=== PATIENT | male | born 1945 | race Caucasian/White ===

== ENCOUNTER 2022-08-14 21:11 | Inpatient (IN) | payer MEDICARE, SELFPAY ==
[2022-08-14] VITALS (8 sets, daily range): BP systolic 121–180; BP diastolic 62–100; PULSE 88–108; RESP 22–27; TEMP 36.8; O2SAT 85–100; BMI 25.8
--- NOTE | 2022-08-14 21:19 | ECG_ITS ---
[facility] Test Date: 2022-08-14 Pat Name: Candido Garcia Department: Room: Gender: Male Policy Checker: : 1945 Requested By: Pauline Simon Order Number: [id number] Manpreet MD: Linh Mallory M.D. Measurements Intervals [place] Rate: 94 P: 29 GA: 147 QRS: 50 QRSD: 130 T: 42 QT: 379 QTc: 475 Interpretive Statements SINUS RHYTHM POSSIBLE LEFT ATRIAL ENLARGEMENT [-0.1mV P-WAVE IN V1/V2] POSSIBLE INFERIOR MYOCARDIAL INFARCTION , PROBABLY OLD [30 ms Q WAVE IN II/aVF] MARKED ST DEPRESSION, CONSIDER SUBENDOCARDIAL INJURY [0.2+ mV ST DEPRESSION] Compared to ECG 09/07/2015 04:34:39 Myocardial infarct finding now present Sinus tachycardia no longer present ST (T wave) deviation still present Electronically Signed On 08-15-2022 7:51:32 RECORD TABULATING CLERK by Linh Mallory M.D. [id number]
--- NOTE | 2022-08-14 21:19 | XRR_ITS ---
PROCEDURE INFORMATION: Exam: XR Chest Exam date and time: 08/14/2022 9:28 PM Age: 76 years old Clinical indication: Shortness of breath; Additional info: SOB TECHNIQUE: Imaging protocol: Radiologic exam of the chest. Views: 1 view. COMPARISON: CR XR chest 1V [id number] 09/07/2015 3:29 AM FINDINGS: Lungs: Cardiomegaly, mild pulmonary vascular congestion and patchy bilateral ground-glass airspace opacities, greatest in the right lower lobe reflecting alveolar edema and/or pneumonic infiltrates. Pleural spaces: Unremarkable. No pleural effusion. No pneumothorax. Heart/Mediastinum: See Lungs finding. Bones/joints: Unremarkable. XR/XR chest 1V portable [id number] IMPRESSION: Cardiomegaly, mild pulmonary vascular congestion and patchy bilateral ground-glass airspace opacities, greatest in the right lower lobe reflecting alveolar edema and/or pneumonic infiltrates.
[2022-08-14 21:36] LABS: ABG PCO2 38.5 mmHg (35-45); ABG PH Result 7.29 (7.35-7.45); Arterial Blood Gas Hematocrit 36.1 % (42-52); Base Excess ABG -7.4 mmol/L (-2.0-2.0); Blood Gas Sample Type Arterial; HCO3 ABG 18.6 mmol/L (22-26); PO2 ABG 64.3 mmHg (80.0-100.0)
[2022-08-14 21:37] LABS: Blood Gas Sample Site Brachial, right; Oxygen Device NC
--- NOTE | 2022-08-14 21:40 | ED_ITS ---
HPI - SOB/Dyspnea General: Chief Complaint: Shortness of Breath/Dyspnea Stated Complaint: CP Time Seen by Provider: 08/14/22 21:16 Source: patient and EMS Mode of arrival: EMS Limitations: no limitations History of Present Illness: HPI Narrative: 76-year-old male states he was driving home and had sudden onset of chest pain shortness of breath at 7:30 PM called EMS EMS states that he was in severe distress he is on 15 L currently with audible rales he is given nitro in route he states his chest pain is improved and is currently resolved EKG by EMS does show ST depressions no ST elevation in 2 contiguous leads to qualify for STEMI he is currently pain-free denies any cough or fever no history of heart disease. Associated symptoms: Reports chest pain; Deny abdominal pain, fever(s), nausea or vomiting Review of Systems Const: Denies: fever(s), chills, body aches or change in appetite Eyes: Denies: blurry vision or eye discomfort ENMT: Denies: throat pain or dental pain Card: Reports: chest pain Resp: Reports: dyspnea GI: Denies: abdominal pain, nausea, vomiting or diarrhea : Denies: dysuria Musc: Denies: neck pain or back pain Skin/Breast: Denies: rash Neuro: Denies: headache(s) Psych: Denies: depression Dandy/Lymph: Denies: easy bruising All/Imm: Denies: urticaria PFSH ED PFSH: Social History (Updated 06/23/22 @ 14:43 by Abril Shah LPN) Smoking and tobacco status: former smoker Quit status (tobacco): has quit using tobacco Year quit tobacco: 57 YEARS AGO Alcohol intake: current Alcohol intake frequency: holidays/special occasions only Physical Exam Const: COMMON NORMALS: patient oriented x3 GENERAL APPEARANCE: in distress and ill appearing HENMT: COMMON NORMALS: normocephalic and atraumatic HEAD & SCALP: normocephalic and atraumatic Eye: COMMON NORMALS: Equal, round and reactive pupils present and EOMs intact bilaterally PUPIL: Yes Equal, round and reactive pupils present Neck/C-Spine: COMMON NORMALS: full ROM and supple Chest: COMMONS NORMALS: normal inspection of the chest and normal palpation of entire chest wall Resp: EFFORT & INSPECTION: Yes respiratory distress and Yes labored AUS CULTATION: rales Cardio: COMMON NORMALS: regular rate, regular rhythm and No murmurs present (Cardio) RATE: regular rate RHYTHM: regular rhythm GI: COMMON NORMALS: Normal to inspection, nondistended, normoactive bowel sounds present, Soft to palpation, non-tender and no masses PALPATION: Yes Soft to palpation Extremity: COMMON NORMALS: normal to inspection and full ROM Neuro: COMMON NORMALS: patient oriented x3, moves all extremities and no focal motor deficits Psych: COMMON NORMALS: mental status grossly normal, Normal thought process present and cooperative THOUGHT PROCESS: Normal thought process present Skin: COMMON NORMALS: no rashes or lesions noted and no wounds GENERAL SKIN EXAM: no rashes or lesions noted Course Reevaluation(s): Reevaluation #1: Spoke to Dr. Tinsley of interventional cardiology who reviewed patient's EKG with EMS and EKG here he does have diffuse ST depressions but no ST elevation and qualifies for STEMI will not activate Veneer Clipper Helper at this time. Time: 21:43 Vital Signs: Vital signs: Vital Signs Temperature 98.2 F 08/14/22 21:14 Pulse Rate 88 08/14/22 21:53 Respiratory Rate 25 H 08/14/22 21:53 Blood Pressure 121/62 08/14/22 21:53 Pulse Oximetry 92 08/14/22 21:53 Oxygen Delivery Me thod 08/14/22 21:53 Oxygen Flow Rate 6 08/14/22 21:53 MDM - SOB/Dyspnea Medical Decision Making Patient presents here initially with dyspnea along with hypertension his blood pressures improved greatly with nitro with EMS as breathing here is improved as well he does have pulmonary edema likely from hypertensive emergency does have an elevated troponin consistent with NSTEMI EKG shows no findings of acute STEMI he is under a very difficult stressor today with his having a stroke and then a large hemorrhagic bleed could be a Tocco Subu's as well we will Lovenox patient patient's breathing is improved we will start on Mamie I spoke to the hospitalist normal jewel gauger and will admit Lab Data 08/14/22 21:30 08/14/22 21:30 Labs/Radiology: Radiology Impressions Chest X-Ray 08/14/22 21:19 IMPRESSION: Cardiomegaly, mild pulmonary vascular congestion and patchy bilateral ground-glass airspace opacities, greatest in the right lower lobe reflecting alveolar edema and/or pneumonic infiltrates. Laboratory Results WBC 16.3 10^3/uL (4.0-10.0) H 08/14/22 21: RBC 4.67 10^6/uL (4.1-5.3) 08/14/22 21: Hgb 11.4 g/dL (11.7-16.6) L 08/14/22 21: Hct 38.6 % (42.0-52.0) L 08/14/22: MCV 82.7 fl (80-94) 08/14/22 21: MCH 24.4 pg (28.0-34.0) L 08/14/22: MCHC 29.5 g/dL (30.0-36.0) L 08/14/22: RDW 14.8 % (12.1-15.1) 08/14/22: Plt Count 342 10^3/cmm (130-400) 08/14/22: MPV 10.4 fL (7.4-10.4) 08/14/22 21: Neut % (Auto) 90.2 % 08/14/22 21: Lymph % (Auto) 4.4 % 08/14/22 21: Ballard % (Auto) 4.2 % 08/14/22: Eos % (Auto) 0.1 % 08/14/22: Baso % (Auto) 0.2 % 08/14/22: Neut # (Auto) 14.70 10^3/uL (1.8-7.7) H 08/14/22: Lymph # (Auto) 0.7 10^3/uL (0.8-4.8) L 08/14/22: Ballard # (Auto) 0.7 10^3/uL (0.2-0.9) 08/14/22: Eos # (Auto) 0.0 10^3/uL (0.0-0.8) 08/14/22 21: Baso # (Auto) 0.0 10^3/uL (0.0-0.1) 08/14/22: Nucleated RBC % (auto) 0 % 08/14/22:30 Nucleated RBCs # 0.0 /100WBC 08/14/22 21:30 PT 15.70 SECONDS (12.1-14.9) H 08/14/22 21:30 INR 1.21 (0.8-1.2) H 08/14/22 21:30 Specimen Type Arterial 08/14/22 21:24 Sample Site Brachial, right 08/14/22 21:24 ABG pH 7.29 (7.35-7.45) L 08/14/22 21: ABG pCO2 38.5 mmHg (35-45) 08/14/22 21: ABG pO2 64.3 mmHg (80.0-100.0) L 08/14/22 21: ABG HCO3 18.6 mmol/L (22-26) L 08/14/22: ABG Base Excess -7.4 mmol/L (-2.0-2.0) L 08/14/22 21:24 Eddie Test N/a 08/14/22 21:24 Hematocrit 36.1 % (42-52) L 08/14/22 21:24 O2 Delivery Device Nc 08/14/22 21:24 O2 Liters/Min 6.0 % 08/14/22 21: FiO2 45.0 % 08/14/22 21:24 Biomedical Manager ID Zoe 08/14/22 21:24 Sodium 135 mmol/L (136-145) L 08/14/22 21:30 Potassium 3.7 mmol/L (3.5-5.1) 08/14/22 21: Chloride 98 mmol/L (98-107) 08/14/22 21:30 Carbon Dioxide 20 mmol/L (22-29) L 08/14/22 21:30 Anion Gap 20.7 (5-19) H 08/14/22 21:30 BUN 20 mg/dL (8-23) 08/14/22 21:30 Creatinine 1.4 mg/dL (0.7-1.2) H 08/14/22 21:30 GFR Calculation Not Reportable 08/14/22 21:30 Glucose 228 mg/dL (65-115) H 08/14/22 21:30 Calculated Osmolality 290 mOsm/kg (285-295) 08/14/22 21:30 Calcium 8.5 mg/dL (8.5-10.5) 08/14/22 21:30 Total Bilirubin 0.7 mg/dL (0.15-1.2) 08/14/22 21:30 AST 38 U/L (0-40) 08/14/22 21:30 ALT 18 U/L (0-41) 08/14/22 21:30 Alkaline Phosphatase 73 U/L (40-130) 08/14/22 21:30 Troponin T Baseline 293 ng/L (0-15) H* 08/14/22 21:30 NT-Pro-B Natriuret Pep 4140 pg/mL (0-450) H 08/14/22 21:30 Total Protein 7.0 g/dL (6.6-8.7) 08/14/22 21: Albumin 4.1 g/dL (3.5-5.2) 08/14/22 21:30 Globulin 2.9 g/dL (1.3-4.6) 08/14/22 21: Lipase 43 U/L (13-60) 08/14/22 21:30 Critical Care Time Critical Care Time: Critical Care Time: Yes Total Critical Care Time: 40 Attestation: The high probability of a clinically significant, sudden or life threatening deterioration of the patient's cv system(s) required my full and direct attention, intervention and personal management. The critical care time is as shown. This time is in addition to time spent performing any reported procedures but includes the following: [x] Data and vital sign review and interpretation [x] Patient assessment, examination and intervention [x] Documentation [x] Medication orders and management Discharge Plan Discharge Patient Disposition: Admitted As Inpatient Clinical Impression: Non-ST elevation NE (NSTEMI), Pulmonary edema Condition: Stable Coding Level of Care Code ED Field Research Associate for Nick Alegre
[2022-08-14 21:55] LABS: INR 1.21 (0.8-1.2)
[2022-08-14 21:58] LABS: Basophils % 0.2 %; Eosinophils % 0.1 %; Hematocrit 38.6 % (42.0-52.0); Hemoglobin 11.4 g/dL (11.7-16.6); Lymphocytes # 0.7 10^3/uL (0.8-4.8); Lymphocytes % 4.4 %; Mean Corpuscular HGB Conc 29.5 g/dL (30.0-36.0); Mean Corpuscular Hemoglobin 24.4 pg (28.0-34.0); Mean Corpuscular Volume 82.7 fl (80-94); Mean Platelet Volume 10.4 fL (7.4-10.4); Monocytes # 0.7 10^3/uL (0.2-0.9); Monocytes % 4.2 %; Neutrophils % 90.2 %; Nucleated Red Blood Cells % 0 %; Platelet Count 342 10^3/cmm (130-400); Red Blood Count 4.67 10^6/uL (4.1-5.3); Red Cell Distribution Width 14.8 % (12.1-15.1); White Blood Count 16.3 10^3/uL (4.0-10.0)
[2022-08-14 22:03] LABS: Alanine Aminotransferase 18 U/L (0-41); Albumin Level 4.1 g/dL (3.5-5.2); Alkaline Phosphatase 73 U/L (40-130); Anion Gap 20.7 (5-19); Aspartate Amino Transferase 38 U/L (0-40); Blood Urea Nitrogen 20 mg/dL (8-23); Calcium 8.5 mg/dL (8.5-10.5); Carbon Dioxide 20 mmol/L (22-29); Chloride 98 mmol/L (98-107); Globulin 2.9 g/dL (1.3-4.6); Glucose 228 mg/dL (65-115); Osmolality Calculated 290 mOsm/kg (285-295); Potassium 3.7 mmol/L (3.5-5.1); Sodium 135 mmol/L (136-145); Total Bilirubin 0.7 mg/dL (0.15-1.2); Troponin(5th) Baseline 293 ng/L (0-15)
[2022-08-14 22:10] LABS: NT Pro B Type Natriuretic Pept 4140 pg/mL (0-450)
[2022-08-14 22:12] LABS: Lipase 43 U/L (13-60)
[2022-08-14] MEDS: azithromycin 500 MG in sodium chloride 0.9% 250 ML 250 MG IV (22:30)
--- NOTE | 2022-08-14 22:30 | ECG_ITS ---
[facility] Test Date: 2022-08-14 Pat Name: Candido Garcia Department: Room: Gender: Male Superintendent House: : 1945 Requested By: Pauline Simon Order Number: [id number] Manpreet MD: Terrell Tinsley M.D. Measurements Intervals [place] Rate: 84 P: 32 FL: 154 QRS: 60 QRSD: 121 T: -79 QT: 401 QTc: 476 Interpretive Statements SINUS RHYTHM PROBABLE INFERIOR MYOCARDIAL INFARCTION , OF INDETERMINATE AGE [35 ms Q WAVE IN II/aVF] ST DEVIATION AND MODERATE T-WAVE ABNORMALITY, CONSIDER LATERAL ISCHEMIA [-0.1+ mV T-WAVE IN I/aVL/V5/V6] Compared to ECG 08/14/2022 21:24:26 T-wave abnormality now present Possible ischemia now present ST (T wave) deviation no longer present Myocardial infarct finding still present Electronically Signed On 08-15-2022 16:21:04 PRIMARY SCHOOL PRINCIPAL by Terrell Tinsley M.D. [id number]
[2022-08-14] MEDS: enoxaparin 80 mg/0.8 mL Syringe 70 MG SUBCUT (22:31)
[2022-08-14] MEDS: cefTRIAXone 1,000 MG in sodium chloride 0.9% (plus) 50 ML 100 MG IV (22:31)
[2022-08-14] MEDS: FUROsemide 10 mg/mL SDV 4mL 40 MG IVP (22:52)
[2022-08-14 23:52] LABS: Troponin 5 2HR 677.3 ng/L (0-15); Troponin 5 2HR Delta 384.3 ABS# (0-10)
[2022-08-15] VITALS (52 sets, daily range): BP systolic 120–181; BP diastolic 69–112; PULSE 68–109; RESP 16–31; TEMP 36.1–36.8; O2SAT 93–100
--- NOTE | 2022-08-15 00:16 | USCV_ITS ---
Candido Garcia Age: 76 Gender: M : 1945 Exam Date: 08/15/2022 01:05 Ordering Phys: Olga Eugene MD Technologist: BRENDA [place] [facility] [place] chest pain relieved with nitroglycerin, NSTEMI, No history of cardiac intervention per patient. BP: 142 / 82 HR: 82 Rhythm: Sinus Technical Quality: Adequate MEASUREMENTS (Male / Female) Normal Values 2D ECHO LV Diastolic Diameter PLAX 4.3 cm 4.2 - 5.9 / 3.9 - 5.3 cm LV Systolic Diameter PLAX 3.7 cm IVS Diastolic Thickness 2.0 cm 0.6 - 1.0 / 0.6 - 0.9 cm IVS Systolic Thickness 2.6 cm LVPW Diastolic Thickness 1.2 cm 0.6 - 1.0 / 0.6 - 0.9 cm LVPW Systolic Thickness 1.4 cm LVOT Diameter 1.9 cm LV Ejection Fraction 2D Teich 28.5 % LV Ejection Fraction MOD 2C 43.3 % LV Ejection Fraction 2C AL 44.4 % LA Diameter 4.6 cm LA Width 4.6 cm LA Height 6.2 cm RA Width 3.3 cm RA Height 4.7 cm Aorta at Sinotubular Diameter 2.5 cm IVC Diameter 1.9 cm M-MODE Aortic Annulus Diameter 2.5 cm LA Ao Ratio MM 1.9 MV E Point Septal Separation 2.0 cm DOPPLER AV Peak Velocity 141.0 cm/s LVOT Peak Velocity 87.0 cm/s AV Area Cont Eq vti 1.9 cm squared AV Area Cont Eq pk 1.7 cm squared MV Area PHT 4.4 cm squared Mitral E to A Ratio 0.9 MV E' Velocity 52.0 cm/s Mitral E to MV E' Ratio 21.5 Mitral E to LV E' Lateral Ratio 21.5 Mitral E to LV E' Septal Ratio 21.5 TR Peak Velocity 342.0 cm/s TR Peak Gradient 46.8 mmHg TV Peak E Velocity 46.0 cm/s Right Atrial Pressure 10.0 mmHg Pulmonary Artery Systolic Pressu 56.8 mmHg PV Peak Velocity 92.0 cm/s RV Acceleration Time 0.1 s RV Ejection Time 0.3 s RV AcT/ET 0.3 FINDINGS Left Ventricle Left ventricle is normal in size. LV systolic function is moderately reduced with EF of 35 to 40%. Mild global hypokinesis with severe hypokinesis of inferolateral wall. Grade 1 diastolic dysfunction. Right Ventricle Normal in size and function Right Atrium Normal in size Left Atrium Normal in size Mitral Valve Moderate mitral annular calcification is seen. Mild mitral regurgitation. Aortic Valve Aortic valve is thickened and calcified. No significant aortic stenosis. Trace aortic regurgitation. Tricuspid Valve Mild tricuspid regurgitation. RVSP is 55 to 60 mmHg. This is consistent with moderate pulmonary hypertension. Pulmonic Valve Not well-visualized Pericardium Normal Aorta Normal in size IVC Appears to be normal CONCLUSIONS LV systolic function is moderately reduced with EF of 35 to 40%. Above-mentioned regional wall motion abnormalities seen Grade 1 diastolic dysfunction Moderate mitral annular calcification is seen. Mild mitral regurgitation Trace aortic regurgitation Mild tricuspid regurgitation Moderate pulmonary hypertension No comparison studies are available Vivek Emmanuel MD (Electronically Signed) Final Date: 15 August 2022 08:19 S
--- NOTE | 2022-08-15 00:23 | PM.HP ---
Providers/Chief Complaint Admitting Physician: Olga Eugene MD Chief Complaint: CP History of Present Illness Candido Garcia is a 76 year old male with a past medical history of hypertension presenting to the hospital with chest pain. Chest pain started as patient was driving to [facility] while his was also being transported there for an acute hemorrhagic stroke. He has been extremely stressed related to his 's illness. He was also acutely short of breath and required 15 L/min supplemental oxygen. He received nitro in route via EMS which relieved his symptoms significantly. Initial EKG was concerning for STEMI, was discussed by ER physician with cardiology. No ST elevation in 2 contiguous leads, more likely to be NSTEMI. Troponin series significantly elevated with increasing delta at 2 hours. Denies any past history of CAD. Review of Systems General: Reports: 10 or more systems reviewed and unremarkable except in HPI and below Const: Denies: fever(s), chills or body aches Eyes: Denies: change in vision, blurry vision or photophobia ENMT: Reports: hoarseness; Denies: throat pain, enlarged tonsils, odynophagia or nasal congestion Card: Denies: chest pain, palpitations, irregular heart rhythm, edema, swelling of feet/ankles, lightheadedness, pre-syncope, dyspnea on exertion or orthopnea Resp: Denies: dyspnea, productive cough, non-productive cough, wheezing, stridor, pain on inspiration, change in phlegm color, hemoptysis or chest congestion GI: Denies: abdominal pain, nausea, vomiting, hematemesis, coffee ground emesis, dysphagia, heartburn, diarrhea, constipation, GI cramping, change in stool character, hematochezia or melena : Denies: flank pain, dysuria, urinary frequency, urinary urgency, urinary hesitancy or hematuria Musc: Denies: neck pain, back pain, extremity pain, joint swelling, joint warmth or deformity Neuro: Denies: headache(s), numbness in extremities, weakness in extremities, sensory changes, difficulty walking, frequent falls, dizziness, vertigo, behavioral changes, Slurred speech present or seizure-like activity Psych: Denies: anxiety, depression, suicidal ideation or homicidal ideation Endo: Denies: polyuria, polydipsia, tired all the time, cold intolerance or hot flashes Dandy/Lymph: Denies: easy bruising or easy bleeding Medications/Allergies Home Medications Medication Instructions Recorded Confirmed Last Taken Type cholecalciferol (vitamin D3) 125 125 mcg PO DAILY 06/23/22 06/23/22 Unknown History mcg (5,000 unit) capsule clonidine HCl 0.2 mg tablet 0.2 mg PO BID #60 tabs 06/23/22 06/23/22 Unknown Rx multivitamin 1 tab PO DAILY 06/23/22 06/23/22 Unknown History omega-3 fatty acids [Fish Oil] PO DAILY 06/23/22 06/23/22 Unknown History bisacodyl 10 mg rectal suppository 10 mg IN DAILY PRN constipation 07/02/22 Unknown Rx (Dulcolax (bisacodyl)) #12 ea hydrocortisone 1 %-pramoxine 1 % 1 applic IN TID PRN hemorrhoids 07/02/22 Unknown Rx rectal foam (Proctofoam HC) #10 grams Allergies Allergy/AdvReac Type Severity Reaction Status Date / Time lisinopril Allergy Severe ALGY-Anaphy Verified 08/14/22 21:21 laxis PFSH Acute PFSH: Social History Smoking and tobacco status: former smoker Quit status (tobacco): has quit using tobacco Year quit tobacco: 57 YEARS AGO Alcohol intake: current Alcohol intake frequency: holidays/special occasions only Vitals/I&O/Wt Last Vital Signs Temp 98.2 F 08/14/22 21:14 Pulse 86 08/15/22 00:00 Resp 25 H 08/14/22 21:53 BP 142/82 08/15/22 00:00 Pulse Ox 95 08/15/22 00:00 O2 Del Method 08/14/22 23:45 O2 Flow Rate 6 08/14/22 21:53 Weight last 48 hrs Weight 74.843 kg Physical Exam Narrative: General: No acute distress, AO x3 HEENT: PERRLA, pupils bilaterally equal and reactive, pallors not present Chest: Normal vesicular breath sounds, no added sounds, equal good air entry bilaterally CVS: S1-S2 regular, no murmurs, no tachycardia, no gallops, no rubs Abdomen: Soft, nontender, no organomegaly, bowel sounds present Neuro: No focal deficits, no facial deformity, AO x3, power 5/5 in all limbs Data 08/14/22 21:30 08/14/22 21:30 Micro: Microbiology 08/14/22 21:47 Blood Culture - Preliminary Blood SPECIMEN COLLECTED 08/14/22 21:45 Blood Culture - Preliminary Blood SPECIMEN COLLECTED A&P Assessment and plan (1) Non-ST elevation CO (NSTEMI): Presenting with chest pain EKg showed ST depression leads I,II, AVF Trop baseline 293, trending up to 677, delta > 300 at 2 hrs Cardiology consulted from ER ASA 81mg po daily, received 325 mg via EMS earlier , atorvastatin 40mg daily Lovenox 1mg/kg s/c q12h NPO for possible cath Clinically evidence of CHF , pending echocardiogram unknown if systolic or diastolic or acute or chronic at this time (2) Hypertension: Blood pressure is currently controlled. Plan Patient is quite anxious and worried about his . Also worried about his pets at home, currently without any heat. He wants to leave the hospital PRINCE. Counseled extensively that he has a life-threatening condition by way of NSTEMI right now. It is quite possible that he will suffer significant morbidity and may even if left untreated. States that he understands the risk, willing to wait until assessed by cardiology, however at this time stating that he will likely leave AMA without a cardiac cath. Attestations Medical Necessity Statement*: Greater than 2 midnights anticipated admission for above defined care Coding Level of Care Code Acute Code for Chg Fwd Moderate MDM includes number and complexity of problems actively addressed during encounter, amount and/or complexity of data reviewed/ordered and described risk of complication, morbidity or mortality of management as documented Diagnoses Non-ST elevation CO (NSTEMI) I21.4 Hypertension I10
[2022-08-15 00:47] LABS: Estmated Average Glucose 108; Hemoglobin A1C 5.4 % (4.0-6.0)
--- NOTE | 2022-08-15 03:19 | ECG_ITS ---
[facility] Test Date: 2022-08-15 Pat Name: Candido Garcia Department: Room: 111 Gender: Male Medical Videographer: : 1945 Requested By: Pauline Simon Order Number: [id number] Manpreet MD: Terrell Tinsley M.D. Measurements Intervals [place] Rate: 83 P: 10 AL: 149 QRS: 37 QRSD: 122 T: -14 QT: 403 QTc: 474 Interpretive Statements SINUS RHYTHM MODERATE INTRAVENTRICULAR CONDUCTION DELAY [110+ ms QRS DURATION] NONSPECIFIC ST & T-WAVE ABNORMALITY Compared to ECG 08/14/2022 22:30:14 Intraventricular conduction delay now present Myocardial infarct finding no longer present Possible ischemia no longer present T-wave abnormality still present Electronically Signed On 08-15-2022 16:21:59 EARTH MOVING MACHINE OPERATOR by Terrell Tinsley M.D. [id number]
[2022-08-15] MEDS: acetaminophen 325 mg Tablet 650 MG PO (03:41)
[2022-08-15 04:23] LABS: Chol HDL Ratio 4.36 mg/dL (1.0-5.00); Cholesterol 205 mg/dL (0-200); HDL Cholesterol 47 mg/dL (60-100); LDL Cholesterol Calculated 147 mg/dL (50-129); LDL HDL Ratio 3.13 RATIO (0.00-3.22); Triglycerides 55 mg/dL (0-150); Troponin 5 6HR 1847 ng/L (0-15); Troponin 5 6HR Delta 1554 ng/L (0-12)
[2022-08-15] MEDS: atorvastatin 40 mg Tablet PO (05:09)
[2022-08-15] MEDS: morphine 4 mg/mL SDV 1 mL 2 MG IVP (05:09)
[2022-08-15 05:46] LABS: Adenovirus Not Detected (NOT DETECT); Chlamydia Pneumoniae Not Detected (NOT DETECT); Coronavirus 229E,HKU1,NL63,OC4 Not Detected (NOT DETECT); Human Metapneumovirus Not Detected (NOT DETECT); Human Rhinovirus/Enterovirus Not Detected (NOT DETECT); Influenza A Not Detected (NOT DETECT); Influenza A H1 Not Detected (NOT DETECT); Influenza A H1-2009 Not Detected (NOT DETECT); Influenza A H3 Not Detected (NOT DETECT); Influenza B Not Detected (NOT DETECT); Mycoplasma Pneumoniae Not Detected (NOT DETECT); Parainfluenza Virus Type 1 Not Detected (NOT DETECT); Parainfluenza Virus Type 2 Not Detected (NOT DETECT); Parainfluenza Virus Type 3 Not Detected (NOT DETECT); Parainfluenza Virus Type 4 Not Detected (NOT DETECT); Respiratory Syncytial Virus A Not Detected (NOT DETECT); Respiratory Syncytial Virus B Not Detected (NOT DETECT); SARS-COV-2 Not Detected (NOT DETECT)
[2022-08-15 06:06] LABS: Alanine Aminotransferase 30 U/L (0-41); Alkaline Phosphatase 68 U/L (40-130); Anion Gap 19.9 (5-19); Aspartate Amino Transferase 153 U/L (0-40); Blood Urea Nitrogen 21 mg/dL (8-23); Calcium 8.6 mg/dL (8.5-10.5); Carbon Dioxide 22 mmol/L (22-29); Chloride 101 mmol/L (98-107); Globulin 2.2 g/dL (1.3-4.6); Glucose 100 mg/dL (65-115); Osmolality Calculated 291 mOsm/kg (285-295); Potassium 3.9 mmol/L (3.5-5.1); Sodium 139 mmol/L (136-145); Total Bilirubin 0.6 mg/dL (0.15-1.2); Total Protein 6.2 g/dL (6.6-8.7)
--- NOTE | 2022-08-15 08:11 | P.CONIM_ITS ---
Providers/Reason For Consult Consulting Physician/Specialty*: Cardiovascular medicine Reason for Consult*: Chest pain, shortness of breath, congestive heart failure, elevated troponin Requesting Physician: Hospitalist Attending Physician: Toño Holder MD History of Present Illness History of Present Illness Candido Garcia is a 76 year old male with known who was here with his last evening. She presented to the hospital with a stroke. She received tissue plasminogen activator and subsequently had an intracranial bleed. She was transferred to [place]. He was planning to go there. He left this hospital and was going home. He stopped at a [employer] in [place] To Get [employer]. As he was walking into the store he had the sudden onset of severe shortness of breath and chest pain. He actually went into the store and completed his purchase. He was driving home and was very short of breath when his son called him. His son noticed that he was in distress and called 911 for his father. He was brought here by ambulance in fairly severe respiratory distress requiring high levels of oxygen and a BiPAP in the emergency room. His initial EKG revealed sinus rhythm with diffuse ST segment depression in multiple leads. There was minimal ST elevation in lead III only. He was given Lovenox, aspirin, IV Lasix in the emergency room. Very shortly thereafter his chest pain completely resolved and his shortness of breath has resolved. It is clear from his clinical presentation and his chest x-ray that he had flash pulmonary edema. His first troponin was 293, the second 677 and the third 1847. He was hypertensive. This morning he told the nurses that he was leaving AGAINST MEDICAL ADVICE and was going to go to [place] to see his . He initially told them that he did not want to see a credit collection specialist here. Apparently he has had second thoughts after speaking to his son and a family friend who is with him today. Currently he is completely free of pain and states I feel fine and I am back to normal . His EKGs became much less ominous over time. The third was at about 230 this morning shows his STs almost back to baseline. Currently he is being treated with aspirin, Lipitor, Lovenox, IV Lasix, morphine as needed. Review of Systems Narrative: Review of systems is negative. Medications/Allergies Home Medications Medication Instructions Recorded Confirmed Last Taken Type cholecalciferol (vitamin D3) 125 125 mcg PO DAILY 06/23/22 06/23/22 Unknown History mcg (5,000 unit) capsule Mag Calm Powder 2 tsp PO DAILY 08/15/22 08/15/22 Unknown History Standard Process Multivitamin 4 tab PO TID 08/15/22 08/15/22 Unknown History aloe vera See Rx Instructions .Route .COMPLEX 08/15/22 08/15/22 Unknown History bisacodyl 5 mg tablet,delayed 10 mg PO DAILY PRN Constipation 08/15/22 08/15/22 Unknown History release (Dulcolax (bisacodyl)) clonidine HCl 0.2 mg tablet 0.2 mg PO DAILY PRN Blood Pressure 08/15/22 08/15/22 Unknown History omega-3 1,050 ei-dog-edh-dpa-fish 1 cap PO QAM 08/15/22 08/15/22 Unknown History oil 1,200 mg capsule (Jaroso-3 (with docosapentaenoic acid)) Allergies Allergy/AdvReac Type Severity Reaction Status Date / Time lisinopril Allergy Severe ALGY-Anaphy Verified 08/15/22 07:53 laxis nifedipine 0.2% topical Allergy pt states Uncoded 08/15/22 08:03 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 Current Medications Generic Name Dose Route Start Last Admin Trade Name Freq PRN Reason Stop Dose Admin Acetaminophen 650 mg 08/15/22 00:16 08/15/22 03:41 Acetaminophen 325 Mg Tablet PO 650 mg Q6H PRN Administration Mild/Mod Pain Or Temp >/= 101 Atorvastatin Calcium 40 mg 08/15/22 04:10 08/15/22 05:09 Atorvastatin 40 Mg Tablet PO 40 mg BEDTIME FRANCHESKA Administration Morphine Sulfate 2 mg 08/15/22 00:16 08/15/22 05:09 Morphine 4 Mg/Ml Sdv 1 Ml IVP 2 mg Q4H PRN Administration SEVERE PAIN PFSH Acute PFSH: Social History Smoking and tobacco status: former smoker Quit status (tobacco): has quit using tobacco Year quit tobacco: 57 YEARS AGO Alcohol intake: current Alcohol intake frequency: holidays/special occasions only Vitals/I&O/Wt Last Vital Signs Temp 97 F L 08/15/22 03:33 Pulse 83 08/15/22 06:00 Resp 22 H 08/15/22 05:09 BP 157/89 08/15/22 03:33 Pulse Ox 94 08/15/22 03:33 O2 Del Method 08/15/22 03:33 O2 Flow Rate 1 08/15/22 03:33 08/14/22 08/15/22 08/15/22 22:59 06:59 14:59 Intake Total 300 / 300 Output Total 835 / 835 Balance -535 / -535 Weight last 48 hrs Weight 161 lb Weight 165 lb Physical Exam Narrative: GENERAL: In general he is comfortable at rest and is in no distress currently HEENT: Exam within normal limits. NECK: Supple without jugular vein distention. The carotid upstroke is normal without bruits. BACK: Exam normal. LUNGS: Clear. HEART: Regular rate and rhythm. ABDOMEN: Benign without organomegaly or tenderness. EXTREMITIES: No edema. NEUROLOGIC: Exam normal. SKIN: Unremarkable. Data 08/14/22 21:30 08/15/22 03:18 Micro: Microbiology 08/14/22 21:47 Blood Culture - Preliminary Blood SPECIMEN COLLECTED 08/14/22 21:45 Blood Culture - Preliminary Blood SPECIMEN COLLECTED A&P Assessment and plan (1) Hypertension: (2) Non-ST elevation FL (NSTEMI): (3) Pulmonary edema: Plan He needs coronary angiography. For now, he has decided to stay. It is sc heduled for 1:00 this afternoon. If he leaves the hospital earlier than recommended he is at high risk for . Consult Attestations Medical Necessity Statement: Needs continued hospitalization for management of a non-ST segment elevation FL, flash pulmonary edema and heart failure. Coding Level of Care Code 00740 Moderate MDM includes number and complexity of problems actively addressed during encounter, amount and/or complexity of data reviewed/ordered and described risk of complication, morbidity or mortality of management as docu mented and Low Time for a total of Total time in patient care (in minutes): 35 minutes, includes reviewing past or interval history, examining/interviewing patient, placing orders, counseling patient/family/other support, discussing plan of care with staff and communicating with other healthcare providers Diagnoses Hypertension I10 Non-ST elevation FL (NSTEMI) I21.4 Pulmonary edema J81.1
[2022-08-15] MEDS: pantoprazole DR 40 mg Tablet PO (08:21)
[2022-08-15] MEDS: aspirin 81 mg EC Tablet PO (08:21)
--- NOTE | 2022-08-15 08:40 | XACV_ITS ---
Exam Room: [facility] Ht: 170 cm Wt: 73 kg BSA: 1.87 m2 Gender: Male : 1945 Exam Priority: Routine Procedure(s): Procedure Description: Diagnostic procedure Procedure Description: Left Heart Catheterization Procedure Description: Coronary Angiography Alvina ARRIOLA; Diagnostic Cath Status: Urgent Diagnostic Findings * Patient presented with flash pulmonary edema and congestive heart failure along with diffuse ST segment depression and troponin elevation. * Initially, the attempt was made to perform the procedure via the right radial artery. The artery was entered and a sheath was placed. There are 2 areas of severe tortuosity and vascular disease of the right radial artery which prevented a wire from passing. The procedure was completed from the groin. The left main reveals a 80% eccentric ostial stenosis. There is mild distal left main stenosis. The circumflex gives off 2 marginal branches. In the very proximal portion of the first obtuse marginal branch there is a 95% discrete stenosis. The circumflex provides some collateral flow from the distal right which is occluded. The left anterior descending exhibits mild diffuse disease. Proximally there is moderate diffuse disease. In the midportion there is a 95% discrete stenosis of the LAD. The right coronary artery is the dominant vessel anatomically. There is a 95% ostial right coronary artery stenosis. The proximal posterior descending artery is occluded. There is collateral flow from both the distal circumflex as well as the septal branches of the LAD. Left ventriculography was not performed because of his acute pulmonary edema. An echocardiogram has revealed mild left ventricular dysfunction. Conclusions 1. Left main coronary artery disease and three-vessel coronary artery disease with flash pulmonary edema. Recommendations * Coronary bypass surgery. Interventional RX Recommendation: CABG Diagnostic RX Recommendation: CABG Anticoagulation: Heparin Pressures Phase:Rest AO : 143 / 91 ( 114 ) @ 12:47:00 PM 131 / 88 ( 108 ) @ 12:48:00 PM 174 / 82 ( 121 ) @ 12:58:00 PM 174 / 80 ( 120 ) @ 12:58:00 PM LV : 162 / 7 / 28 @ 12:57:00 PM 163 / 8 / 30 @ 12:58:00 PM Valves Phase:DefaultPhase AV : 0.0 @ 1:05:33 PM 0.0 @ 1:05:33 PM AV Mean Gradient: 0.0 @ 1:05:33 PM Clinical Evaluation EBL: 5mL-10mL Procedural Details Procedure Consent Obtained. Admit Source: In Patient. Pre-Procedure Time Out. Identified patient by full name and date of as verbalized by the patient/guarantor. Does the consent match the physician's order: Yes. Accurate & Complete Informed Consent: Yes. Inpatient/Outpatient History & Physical on Chart: Yes. If H&P is completed, is and addenduem needed: N/A; If yes, is the addendum complete: N/A. Visualize and Verify Site with Patient/Guarantor: N/A. Relevant Radiology Images available: N/A. Pre-op teaching completed and patient verbalized understanding. The risks, benefits, and alternatives of sedation and/or procedure were discussed by physician. The patient agrees to continue. Procedure started. [facility] Clinical Fraility Score: 4: Vulnerable. Project Drilling Engineer Indications: Worsening Angina. Chest Pain Symptom Assessment: Typical Angina Symptoms. Correct patient, site and procedure confirmed by cath team. Current diagnosis: NSTEMI. PERRLA. Strong, equal hand bounty hunter bilaterally. Lungs clear x 5 lobes. IV Site on Arrival: 16 gauge in the left forearm. IV Site on Arrival: 20 gauge in the right anticubital. IV Fluids: 0.9% NaCl at KVO. 0 mL infused prior to starch factory laborer. Pre Procedural Pulses: right radial was 3+. Pre Procedural Pulses: left dorsalis pedis was Absent. Pre Procedural Pulses: right dorsalis pedis was Doppled. Oxygen started at 2liters/min via nasal canula. right radial was prepped with chloroprep then draped in the usual sterile fashion. Physician notified. right groin was prepped with chloroprep then draped in the usual sterile fashion. Baseline sample Acquired. HR: 0 BPM. Physician arrived. Physician scrubbed in. Immediate Pre-Procedure Time Out. Correct Patient: Yes; Correct Procedure: Yes; Correct Site: Yes; Correct Patient Position: Yes; Correct Supplies: Yes; Dried Flammable Prep: Yes; Blood Products Available: N/A;. Lidocaine 1% infiltrated to the right radial. Arterial access obtained. Glidewire inserted. Unable to advance glidewire. Hand injection performed though the radial sheath. Radial access aborted d/t tortuosity. Lidocaine 1% infiltrated to the right groin. Arterial access obtained. A 5 english JL4 catheter in over wire. Multiple views taken of left coronary artery. Catheter removed over the exchange wire. A 6 english JR4 catheter in over wire. Multiple views taken of right coronary artery. Catheter out. A 6 english Angled Pig catheter in over wire. EDP Sample taken: LV 162/7,28; HR: 94 BPM; SpO2: 89%. Pullback taken: LV 163/8,30; AO 174/82(121); Mean: 0mmHg, Peak to Peak: 0mmHg, SEP: 9sec/min; HR: 93 BPM; SpO2: 92%. Catheter out. A TR Band was successful obtaining hemostatsis at the Right Radial artery insertion site. A Suture was successful obtaining hemostatsis at the Radial artery insertion site. Physician scrubbed out. Sheath(s) sutured into position with 2-0 silk and sterile 4x4's and Op-site applied over the site. No oozing or signs and symptoms of hematoma noted. Post Procedure: Pulses reassessed and unchanged. PERRLA. Strong, equal hand bounty hunter bilaterally. No VTE prophylaxis required. Medication's Wasted: Nitro = 50 mg. Medication's Wasted: Other = Versed 1 mg. Medication's Wasted: Other = Fentanyl 50 mcg. Total IV fluids: 30 mL. Post-op diagnosis: Left Main CAD. Complications: none. Estimated blood loss: 5mL-10mL. Responsiveness - Normal response to verbal stimuli; alert and oriented, PERRLA. Airway - Unaffected, no intervention required; spontaneous ventilation. Circulation: W/N/L, pulses unchanged. Nausea/Vomiting: No. Procedure completed. Patient transferred by bed to 1st floor. Vital chart was stopped. Access Site Site: Right Radial artery Sheath Size: 6 Fr Hemostasis Method: TR Band Hemostasis Success: Successful Site: Radial artery Sheath Size: 6 Fr Hemostasis Method: Suture Hemostasis Success: Successful Procedure Medications Start: 12:33 PM Stop: 12:33 PM Medication: Versed Amount: 1 mg Route: I.V. Start: 12:33 PM Stop: 12:33 PM Medication: Fentanyl Amount: 50 mcg Route: I.V. Start: 12:35 PM Stop: 12:35 PM Medication: Benadryl Amount: 50 mg Route: I.V. Start: 12:59 PM Stop: 12:59 PM Medication: Heparin Amount: 1500 units Route: I.V. I, the attending physician, have reviewed and verified all procedure medications. Yes, all medications given per verbal order History/Risk Factors Hypertension: Yes Dyslipidemia: Yes Peripheral Arterial Disease (PAD): No Myocardial Infarction (TN): No Obesity: No Renal Disease: No Tobacco Use: Former Prior Interventions PCI: No CABG: No Valve Surgery: No Report Signatures Finalized by Dr. Terrell Tinsley MD on 08/15/2022 03:44 PM
--- NOTE | 2022-08-15 10:02 | PM.PN ---
Subjective Subjective: Patient is going for angiogram Currently chest pain-free willing to stay Vitals/I&O/Wt Last Vital Signs Temp 98.3 F 08/15/22 08:00 Pulse 77 08/15/22 08:00 Resp 22 H 08/15/22 08:00 BP 136/78 08/15/22 08:00 Pulse Ox 96 08/15/22 08:00 O2 Del Method 08/15/22 08:00 O2 Flow Rate 1.5 08/15/22 08:00 08/14/22 08/15/22 08/15/22 22:59 06:59 14:59 Intake Total 300 / 300 Output Total 835 / 835 Balance -535 / -535 Weight last 48 hrs Weight 73.028 kg Weight 74.843 kg Physical Exam Narrative: Euvolemic S1, S2 Currently on 1.5 L nasal cannula Abdomen distended nontender No signs of edema Currently no active chest pain Hemodynamically stable Pleasant and cooperative Data 08/14/22 21:30 08/15/22 03:18 Micro: Microbiology 08/14/22 21:47 Blood Culture - Preliminary Blood SPECIMEN COLLECTED 08/14/22 21:45 Blood Culture - Preliminary Blood SPECIMEN COLLECTED A&P Assessment and plan (1) Hypertension: (2) Non-ST elevation CA (NSTEMI): Plan Going for angiogram 1 PM today NSTEMI No active chest pain We will request D-dimer COVID-negative Congestive heart failure reduced ejection fraction EF 35 to 40% No active signs of exacerbation no clinical signs of fluid overload Grade 1 diastolic dysfunction Moderate pulmonary hypertension Hypertension: Continue with Dependency regimen Full code N.p.o. for angiogram Cardiac diet Start DVT prophylaxis after 6 hours of angiogram Attestations Medical Necessity Statement*: Possible discharge tomorrow Coding Level of Care Code Acute Code for [facility] Diagnoses Hypertension I10 Non-ST elevation CA (NSTEMI) I21.4
[2022-08-15] MEDS: ALPRAZolam 0.5 mg Tablet PO (10:28)
--- NOTE | 2022-08-15 11:13 | PC.CHAP ---
Pastoral Care Encounter/Spiritual Assessment Type of Contact [] Declined esol instructor visit [] Patient/Family/Request visit [] Outpatient visit [] Follow-up visit [] Physician referral [] Code/Alert [x] Routine visit [] Staff referral [] Actively dying [] Patient sleeping [x] Family support [] [] Out of room [] Palliative care [] [] Receiving care in room [] Pre-surgical visit [] Trauma [] Long length of stay [] ICU visit [] Other: Relational/Emotional Strength [x] Patient feels connected with others/family/visitors/staff [] Distress [] Loneliness/isolation [] Abandonment Spirituality of Patient [x] Person of Lissette [] Attends Pentecostalism of their Lissette [x] Believes in Prayer [] Reads Bible or Gnosticist materials [] There are Spiritual issues to be addressed Airborne Operations Interventions [x] Prayer [] Active listening [] Non-anxious presence [] Spiritual/emotional support [] Crisis/trauma care [] Spiritual counseling [] Bereavement support [] Provided bereavement packet [x] Provided Bible/devotional materials [] Provided toy/stuffed animal, coloring book to patient or family member [] Provided Communion [] Anointing/[place] [] Salvation [x] Completed spiritual assessment [] Other: Impact on Illness or Injury [] Angry [] Fearful [] Anxious [] Often cries [] Exhaustion [] Unable to work [] Unable to attend rastafari [] Unable to walk/stand [] Unable to read [] Unable to drive [] Unable to eat/drink [] Unable to sleep [] Unable to be with family [] Patient intubated [] Other: Summary Time spent with patient 10min
[2022-08-15] MEDS: sodium chloride 0.9% 1,000 ML 30 ML IV (12:11)
--- NOTE | 2022-08-15 12:30 | PC.NURSE ---
to cardiac laboratory inspector via w/c
--- NOTE | 2022-08-15 13:36 | PC.NURSE ---
received from cardiac quality assurance qa lab technician at 1315 via bed.report received.pt is drowsy but easily awakened.sr on monitor.denies pain at present.right radial arterial tr band is on and inflated.right hand is warm to touch and with brisk capillary refill.no hematoma noted.right femoral arterial sheath is intact to pressurized system.drsg is dry and intact.no hematoma noted.right leg is warm to touch and with brisk capillary refill.dopplerable right dp pulse noted.pt instructed in activity restrictions s/p radial and femoral artery procedure..and instructed to notify staff for any bleeding,pain,numbness...or for any concerns at all.pt verb understanding of instructions
--- NOTE | 2022-08-15 14:13 | PM.MISC ---
Miscellaneous Note Note: Patient angiography a short time ago. He has severe left main disease and severe ostial right coronary artery disease. This requires coronary bypass surgery. Complicating this is that his is dying from an intracranial bleed after stroke and tPA administration last night. I am trying to make arrangements to get him transferred to [facility] before she dies and so that he can have open heart surgery there. I have a call into them but have not yet heard back from the cardiac surgery group. For now he is stable. We will await their call back and make arrangements for transfer when they have a better when they can take him.
--- NOTE | 2022-08-15 14:54 | P.MISC_ITS ---
Miscellaneous Note Note: I just received a call back from the physicians in [place]. They are going to be able to transfer him this afternoon. I have been in contact with the cardiac surgeon there. We will send all the paperwork which is proper. I will also been in contact with his son Samuel who is in [place] with the patient's . I have updated the patient about his cardiac situation about his 's condition. Transfer will be imminent.
[2022-08-15 15:25] LABS: Partial Thromboplastin Time 32.4 SECONDS (23.9-36.7)
[2022-08-15] MEDS: sodium chloride 0.9% 500 ML 75 ML IV (15:31)
--- NOTE | 2022-08-15 16:02 | P.TS_ITS ---
Transfer Summary Providers Date of Admission: 08/15/22 00:16 Date of Discharge/Transfer: 08/15/22 Attending Provider at Admission: Olga Eugene MD Attending Provider at Transfer: Toño Holder MD Transfer Plans: Anticipated date of transfer: 08/15/22 . 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 His hemoglobin A1c is 5.4, first troponin 293, second hour troponin 677, 6-hour troponin 1847, BNP 4000, potassium 3.9, sodium 139, hemoglobin 11.4 Physical Exam Narrative: Euvolemic S1, S2 Currently on 1.5 L nasal cannula Abdomen distended nontender No signs of edema Currently no active chest pain Hemodynamically stable Pleasant and cooperative TS Data Studies Completed and Pending Pending at discharge Category Date Time Status Blood Culture Stat Lab 08/14/22 21:47 Results Complete Blood Count w/Auto AM LABS Lab 08/16/22 04:00 Ordered Comprehensive Metabolic Panel AM LABS Lab 08/16/22 04:00 Ordered Magnesium AM LABS Lab 08/16/22 04:00 Ordered Labs from last 24 hours 08/15/22 08/15/22 08/15/22 15:05 04:00 03:18 WBC RBC Hgb Hct MCV MCH MCHC RDW Plt Count MPV Neut % (Auto) Lymph % (Auto) Gordon % (Auto) Eos % (Auto) Baso % (Auto) Neut # (Auto) Lymph # (Auto) Gordon # (Auto) Eos # (Auto) Baso # (Auto) Nucleated RBC % (auto) Nucleated RBCs # PT INR APTT 32.4 Specimen Type Sample Site ABG pH ABG pCO2 ABG pO2 ABG HCO3 ABG Base Excess Eddie Test Hematocrit O2 Delivery Device O2 Liters/Min FiO2 Speech Therapy Teacher ID Sodium 139 Potassium 3.9 Chloride 101 Carbon Dioxide 22 Anion Gap 19.9 H BUN 21 Creatinine 1.3 H GFR Calculation Not Reportable Glucose 100 Estimat Average Glucose Hemoglobin A1c Calculated Osmolality 291 Calcium 8.6 Total Bilirubin 0.6 AST 153 H ALT 30 Alkaline Phosphatase 68 Troponin T Baseline Troponin T 120 Minute Delta Troponin T Troponin T Hi Sens 6Hr Troponin T Hi Sens 6Hr Delta NT-Pro-B Natriuret Pep Total Protein 6.2 L Albumin 4.0 Globulin 2.2 Triglycerides Cholesterol LDL Cholesterol, Calc HDL Cholesterol LDL/HDL Ratio Cholesterol/HDL Ratio Lipase Nasal Influ A H1 2008 PCR Not detected Adenovirus (PCR) Not detected C. pneumoniae DNA (PCR) Not detected Coronavirus 229E (PCR) Not detected Human Metapneumovir PCR Not detected Influenza A (H1) PCR Not detected Influenza A (H3) PCR Not detected Influenza Type A (PCR) Not detected Influenza Type B (PCR) Not detected M. pneumoniae (PCR) Not detected Parainfluenza 1 (PCR) Not detected Parainfluenza 2 (PCR) Not detected Parainfluenza 3 (PCR) Not detected Parainfluenza 4 (PCR) Not detected RSV Type A (PCR) Not detected RSV Type B (PCR) Not detected Entero/Rhino (PCR) Not detected SARS-CoV-2 (PCR) Not detected 08/15/22 08/15/22 08/14/22 03:18 03:18 23:25 WBC RBC Hgb Hct MCV MCH MCHC RDW Plt Count MPV Neut % (Auto) Lymph % (Auto) Gordon % (Auto) Eos % (Auto) Baso % (Auto) Neut # (Auto) Lymph # (Auto) Gordon # (Auto) Eos # (Auto) Baso # (Auto) Nucleated RBC % (auto) Nucleated RBCs # PT INR APTT Specimen Type Sample Site ABG pH ABG pCO2 ABG pO2 ABG HCO3 ABG Base Excess Eddie Test Hematocrit O2 Delivery Device O2 Liters/Min FiO2 Speech Therapy Teacher ID Sodium Potassium Chloride Carbon Dioxide Anion Gap BUN Creatinine GFR Calculation Glucose Estimat Average Glucose Hemoglobin A1c Calculated Osmolality Calcium Total Bilirubin AST ALT Alkaline Phosphatase Troponin T Baseline Troponin T 120 Minute 677.3 H Delta Troponin T 384.3 H* Troponin T Hi Sens 6Hr 1847 H Troponin T Hi Sens 6Hr Delta 1554 H* NT-Pro-B Natriuret Pep Total Protein Albumin Globulin Triglycerides 55 Cholesterol 205 H LDL Cholesterol, Calc 147 H HDL Cholesterol 47 L LDL/HDL Ratio 3.13 Cholesterol/HDL Ratio 4.36 Lipase Nasal Influ A H1 2008 PCR Adenovirus (PCR) C. pneumoniae DNA (PCR) Coronavirus 229E (PCR) Human Metapneumovir PCR Influenza A (H1) PCR Influenza A (H3) PCR Influenza Type A (PCR) Influenza Type B (PCR) M. pneumoniae (PCR) Parainfluenza 1 (PCR) Parainfluenza 2 (PCR) Parainfluenza 3 (PCR) Parainfluenza 4 (PCR) RSV Type A (PCR) RSV Type B (PCR) Entero/Rhino (PCR) SARS-CoV-2 (PCR) 08/14/22 08/14/22 08/14/22 21:30 21:30 21:30 WBC RBC Hgb Hct MCV MCH MCHC RDW Plt Count MPV Neut % (Auto) Lymph % (Auto) Gordon % (Auto) Eos % (Auto) Baso % (Auto) Neut # (Auto) Lymph # (Auto) Gordon # (Auto) Eos # (Auto) Baso # (Auto) Nucleated RBC % (auto) Nucleated RBCs # PT INR APTT Specimen Type Sample Site ABG pH ABG pCO2 ABG pO2 ABG HCO3 ABG Base Excess Eddie Test Hematocrit O2 Delivery Device O2 Liters/Min FiO2 Speech Therapy Teacher ID Sodium Potassium Chloride Carbon Dioxide Anion Gap BUN Creatinine GFR Calculation Glucose Estimat Average Glucose 108 Hemoglobin A1c 5.4 Calculated Osmolality Calcium Total Bilirubin AST ALT Alkaline Phosphatase Troponin T Baseline 293 H* Troponin T 120 Minute Delta Troponin T Troponin T Hi Sens 6Hr Troponin T Hi Sens 6Hr Delta NT-Pro-B Natriuret Pep Total Protein Albumin Globulin Triglycerides Cholesterol LDL Cholesterol, Calc HDL Cholesterol LDL/HDL Ratio Cholesterol/HDL Ratio Lipase 43 Nasal Influ A H1 2008 PCR Adenovirus (PCR) C. pneumoniae DNA (PCR) Coronavirus 229E (PCR) Human Metapneumovir PCR Influenza A (H1) PCR Influenza A (H3) PCR Influenza Type A (PCR) Influenza Type B (PCR) M. pneumoniae (PCR) Parainfluenza 1 (PCR) Parainfluenza 2 (PCR) Parainfluenza 3 (PCR) Parainfluenza 4 (PCR) RSV Type A (PCR) RSV Type B (PCR) Entero/Rhino (PCR) SARS-CoV-2 (PCR) 08/14/22 08/14/22 08/14/22 21:30 21:30 21:30 WBC 16.3 H RBC 4.67 Hgb 11.4 L Hct 38.6 L MCV 82.7 MCH 24.4 L MCHC 29.5 L RDW 14.8 Plt Count 342 MPV 10.4 Neut % (Auto) 90.2 Lymph % (Auto) 4.4 Gordon % (Auto) 4.2 Eos % (Auto) 0.1 Baso % (Auto) 0.2 Neut # (Auto) 14.70 H Lymph # (Auto) 0.7 L Gordon # (Auto) 0.7 Eos # (Auto) 0.0 Baso # (Auto) 0.0 Nucleated RBC % (auto) 0 Nucleated RBCs # 0.0 PT 15.70 H INR 1.21 H APTT Specimen Type Sample Site ABG pH ABG pCO2 ABG pO2 ABG HCO3 ABG Base Excess Eddie Test Hematocrit O2 Delivery Device O2 Liters/Min FiO2 Speech Therapy Teacher ID Sodium 135 L Potassium 3.7 Chloride 98 Carbon Dioxide 20 L Anion Gap 20.7 H BUN 20 Creatinine 1.4 H GFR Calculation Not Reportable Glucose 228 H Estimat Average Glucose Hemoglobin A1c Calculated Osmolality 290 Calcium 8.5 Total Bilirubin 0.7 AST 38 ALT 18 Alkaline Phosphatase 73 Troponin T Baseline Troponin T 120 Minute Delta Troponin T Troponin T Hi Sens 6Hr Troponin T Hi Sens 6Hr Delta NT-Pro-B Natriuret Pep 4140 H Total Protein 7.0 Albumin 4.1 Globulin 2.9 Triglycerides Cholesterol LDL Cholesterol, Calc HDL Cholesterol LDL/HDL Ratio Cholesterol/HDL Ratio Lipase Nasal Influ A H1 2008 PCR Adenovirus (PCR) C. pneumoniae DNA (PCR) Coronavirus 229E (PCR) Human Metapneumovir PCR Influenza A (H1) PCR Influenza A (H3) PCR Influenza Type A (PCR) Influenza Type B (PCR) M. pneumoniae (PCR) Parainfluenza 1 (PCR) Parainfluenza 2 (PCR) Parainfluenza 3 (PCR) Parainfluenza 4 (PCR) RSV Type A (PCR) RSV Type B (PCR) Entero/Rhino (PCR) SARS-CoV-2 (PCR) 08/14/22 21:24 WBC RBC Hgb Hct MCV MCH MCHC RDW Plt Count MPV Neut % (Auto) Lymph % (Auto) Gordon % (Auto) Eos % (Auto) Baso % (Auto) Neut # (Auto) Lymph # (Auto) Gordon # (Auto) Eos # (Auto) Baso # (Auto) Nucleated RBC % (auto) Nucleated RBCs # PT INR APTT Specimen Type Arterial Sample Site Brachial, right ABG pH 7.29 L ABG pCO2 38.5 ABG pO2 64.3 L ABG HCO3 18.6 L ABG Base Excess -7.4 L Eddie Test N/a Hematocrit 36.1 L O2 Delivery Device Nc O2 Liters/Min 6.0 FiO2 45.0 Speech Therapy Teacher ID Alewe Sodium Potassium Chloride Carbon Dioxide Anion Gap BUN Creatinine GFR Calculation Glucose Estimat Average Glucose Hemoglobin A1c Calculated Osmolality Calcium Total Bilirubin AST ALT Alkaline Phosphatase Troponin T Baseline Troponin T 120 Minute Delta Troponin T Troponin T Hi Sens 6Hr Troponin T Hi Sens 6Hr Delta NT-Pro-B Natriuret Pep Total Protein Albumin Globulin Triglycerides Cholesterol LDL Cholesterol, Calc HDL Cholesterol LDL/HDL Ratio Cholesterol/HDL Ratio Lipase Nasal Influ A H1 2008 PCR Adenovirus (PCR) C. pneumoniae DNA (PCR) Coronavirus 229E (PCR) Human Metapneumovir PCR Influenza A (H1) PCR Influenza A (H3) PCR Influenza Type A (PCR) Influenza Type B (PCR) M. pneumoniae (PCR) Parainfluenza 1 (PCR) Parainfluenza 2 (PCR) Parainfluenza 3 (PCR) Parainfluenza 4 (PCR) RSV Type A (PCR) RSV Type B (PCR) Entero/Rhino (PCR) SARS-CoV-2 (PCR) Completed Studies During Hospitalization Category Date Time Status [employer] request for service Routine Exams 08/15/22 08:40 Completed XR chest 1V portable [id number] Stat Exams 08/14/22 21:19 Completed CV. echo complete* [id number] Routine Ultrasound 08/15/22 00:16 Completed Laboratory Last Values WBC 16.3 10^3/uL (4.0-10.0) H 08/14/22 21:30 RBC 4.67 10^6/uL (4.1-5.3) 08/14/22 21:30 Hgb 11.4 g/dL (11.7-16.6) L 08/14/22 21:30 Hct 38.6 % (42.0-52.0) L 08/14/22 21:30 MCV 82.7 fl (80-94) 08/14/22 21:30 MCH 24.4 pg (28.0-34.0) L 08/14/22 21: MCHC 29.5 g/dL (30.0-36.0) L 08/14/22 21:30 RDW 14.8 % (12.1-15.1) 08/14/22 21: Plt Count 342 10^3/cmm (130-400) 08/14/22 21: MPV 10.4 fL (7.4-10.4) 08/14/22 21:30 Neut % (Auto) 90.2 % 08/14/22 21: Lymph % (Auto) 4.4 % 08/14/22 21: Gordon % (Auto) 4.2 % 08/14/22 21: Eos % (Auto) 0.1 % 08/14/22: Baso % (Auto) 0.2 % 08/14/22 21: Neut # (Auto) 14.70 10^3/uL (1.8-7.7) H 08/14/22 21:30 Lymph # (Auto) 0.7 10^3/uL (0.8-4.8) L 08/14/22 21: Gordon # (Auto) 0.7 10^3/uL (0.2-0.9) 08/14/22 21:30 Eos # (Auto) 0.0 10^3/uL (0.0-0.8) 08/14/22 21: Baso # (Auto) 0.0 10^3/uL (0.0-0.1) 08/14/22 21: Nucleated RBC % (auto) 0 % 08/14/22 21: Nucleated RBCs # 0.0 /100WBC 08/14/22 21: PT 15.70 SECONDS (12.1-14.9) H 08/14/22 21: INR 1.21 (0.8-1.2) H 08/14/22 21: APTT 32.4 SECONDS (23.9-36.7) 08/15/22 15:05 Specimen Type Arterial 08/14/22 21:24 Sample Site Brachial, right 08/14/22 21:24 ABG pH 7.29 (7.35-7.45) L 08/14/22 21:24 ABG pCO2 38.5 mmHg (35-45) 08/14/22 21:24 ABG pO2 64.3 mmHg (80.0-100.0) L 08/14/22 21:24 ABG HCO3 18.6 mmol/L (22-26) L 08/14/22 21:24 ABG Base Excess -7.4 mmol/L (-2.0-2.0) L 08/14/22 21:24 Eddie Test N/a 08/14/22 21:24 Hematocrit 36.1 % (42-52) L 08/14/22 21:24 O2 Delivery Device Nc 08/14/22 21:24 O2 Liters/Min 6.0 % 08/14/22 21: FiO2 45.0 % 08/14/22 21:24 Speech Therapy Teacher ID Zoe 08/14/22 21:24 Sodium 139 mmol/L (136-145) 08/15/22 03:18 Potassium 3.9 mmol/L (3.5-5.1) 08/15/22 03:18 Chloride 101 mmol/L (98-107) 08/15/22 03:18 Carbon Dioxide 22 mmol/L (22-29) 08/15/22 03:18 Anion Gap 19.9 (5-19) H 08/15/22 03:18 BUN 21 mg/dL (8-23) 08/15/22 03:18 Creatinine 1.3 mg/dL (0.7-1.2) H 08/15/22 03:18 GFR Calculation Not Reportable 08/15/22 03:18 Glucose 100 mg/dL (65-115) 08/15/22 03:18 Estimat Average Glucose 108 08/14/22 21:30 Hemoglobin A1c 5.4 % (4.0-6.0) 08/14/22 21:30 Calculated Osmolality 291 mOsm/kg (285-295) 08/15/22 03:18 Calcium 8.6 mg/dL (8.5-10.5) 08/15/22 03:18 Total Bilirubin 0.6 mg/dL (0.15-1.2) 08/15/22 03:18 AST 153 U/L (0-40) H 08/15/22 03:18 ALT 30 U/L (0-41) 08/15/22 03:18 Alkaline Phosphatase 68 U/L (40-130) 08/15/22 03:18 Troponin T Baseline 293 ng/L (0-15) H* 08/14/22 21:30 Troponin T 120 Minute 677.3 ng/L (0-15) H 08/14/22 23:25 Delta Troponin T 384.3 ABS# (0-10) H* 08/14/22 23:25 Troponin T Hi Sens 6Hr 1847 ng/L (0-15) H 08/15/22 03:18 Troponin T Hi Sens 6Hr Delta 1554 ng/L (0-12) H* 08/15/22 03:18 NT-Pro-B Natriuret Pep 4140 pg/mL (0-450) H 08/14/22 21:30 Total Protein 6.2 g/dL (6.6-8.7) L 08/15/22 03:18 Albumin 4.0 g/dL (3.5-5.2) 08/15/22 03:18 Globulin 2.2 g/dL (1.3-4.6) 08/15/22 03:18 Triglycerides 55 mg/dL (0-150) 08/15/22 03:18 Cholesterol 205 mg/dL (0-200) H 08/15/22 03:18 LDL Cholesterol, Calc 147 mg/dL (50-129) H 08/15/22 03:18 HDL Cholesterol 47 mg/dL (60-100) L 08/15/22 03:18 LDL/HDL Ratio 3.13 RATIO (0.00-3.22) 08/15/22 03:18 Cholesterol/HDL Ratio 4.36 mg/dL (1.0-5.00) 08/15/22 03:18 Lipase 43 U/L (13-60) 08/14/22 21:30 Nasal Influ A H1 2008 PCR Not detected (NOT DETECT) 08/15/22 04:00 Adenovirus (PCR) Not detected (NOT DETECT) 08/15/22 04:00 C. pneumoniae DNA (PCR) Not detected (NOT DETECT) 08/15/22 04:00 Coronavirus 229E (PCR) Not detected (NOT DETECT) 08/15/22 04:00 Human Metapneumovir PCR Not detected (NOT DETECT) 08/15/22 04:00 Influenza A (H1) PCR Not detected (NOT DETECT) 08/15/22 04:00 Influenza A (H3) PCR Not detected (NOT DETECT) 08/15/22 04:00 Influenza Type A (PCR) Not detected (NOT DETECT) 08/15/22 04:00 Influenza Type B (PCR) Not detected (NOT DETECT) 08/15/22 04:00 M. pneumoniae (PCR) Not detected (NOT DETECT) 08/15/22 04:00 Parainfluenza 1 (PCR) Not detected (NOT DETECT) 08/15/22 04:00 Parainfluenza 2 (PCR) Not detected (NOT DETECT) 08/15/22 04:00 Parainfluenza 3 (PCR) Not detected (NOT DETECT) 08/15/22 04:00 Parainfluenza 4 (PCR) Not detected (NOT DETECT) 08/15/22 04:00 RSV Type A (PCR) Not detected (NOT DETECT) 08/15/22 04:00 RSV Type B (PCR) Not detected (NOT DETECT) 08/15/22 04:00 Entero/Rhino (PCR) Not detected (NOT DETECT) 08/15/22 04:00 SARS-CoV-2 (PCR) Not detected (NOT DETECT) 08/15/22 04:00 Radiology Impressions Chest X-Ray 08/14/22 21:19 IMPRESSION: Cardiomegaly, mild pulmonary vascular congestion and patchy bilateral ground-glass airspace opacities, greatest in the right lower lobe reflecting alveolar edema and/or pneumonic infiltrates. Recent Clincial Data Last Vital Signs Temp 98.1 F 08/15/22 12:00 Pulse 93 08/15/22 15:50 Resp 25 H 08/15/22 15:50 BP 155/82 08/15/22 15:50 Pulse Ox 99 08/15/22 15:50 O2 Del Method 08/15/22 12:00 O2 Flow Rate 1.5 08/15/22 08:00 Vital Signs Temp Pulse Resp BP Pulse Ox O2 Del Method O2 Flow Rate 08/15/22 15:50 93 25 H 155/82 99 08/15/22 15:35 84 20 H 164/84 100 08/15/22 15:20 84 23 H 179/95 98 08/15/22 15:05 80 24 H 150/89 100 02/10/23 14:50 96 25 H 120/71 100 08/15/22 14:35 68 16 128/76 96 08/15/22 14:15 72 16 123/71 95 08/15/22 14:00 70 16 156/88 96 08/15/22 13:45 76 16 165/85 97 08/15/22 13:30 89 21 H 181/101 98 08/15/22 13:15 124/71 08/15/22 12:00 98.1 F 75 20 H 124/71 98 Nasal Cannula 08/15/22 08:00 98.3 F 77 22 H 136/78 96 Nasal Cannula 1.5 08/15/22 06:00 83 08/15/22 05:09 22 H Intake & Output/Weight 08/13/22 08/14/22 08/15/22 08/16/22 06:59 06:59 06:59 06:59 Intake Total 300 / 300 0 / 0 Output Total 835 / 835 Balance -535 / -535 0 / 0 Weight 73.028 kg Vitals Last Vital Signs Temp 98.1 F 08/15/22 12:00 Pulse 93 08/15/22 15:50 Resp 25 H 08/15/22 15:50 BP 155/82 08/15/22 15:50 Pulse Ox 99 08/15/22 15:50 O2 Del Method 08/15/22 12:00 O2 Flow Rate 1.5 08/15/22 08:00 TS Medications Medications Acetaminophen (Acetaminophen 325 Mg Tablet) 650 mg PO Q6H PRN PRN Reason: Mild/Mod Pain Or Temp >/= 101 Last Admin: 08/15/22 03:41 Dose: 650 mg Alprazolam (Alprazolam 0.5 Mg Tablet) 0.5 mg PO BID PRN PRN Reason: ANXIETY Last Admin: 08/15/22 10:28 Dose: 0.5 mg Aspirin (Aspirin 81 Mg Ec Tablet) 81 mg PO DAILY FRANCHESKA Last Admin: 08/15/22 08:21 Dose: 81 mg Atorvastatin Calcium (Atorvastatin 40 Mg Tablet) 40 mg PO BEDTIME FRANCHESKA Last Admin: 08/15/22 05:09 Dose: 40 mg Fentanyl (Fentanyl 50 Mcg/Ml Inj 2ml) 50 mcg IVP PRN PRN PRN Reason: sheath pull Furosemide (Furosemide 40 Mg Tablet) 40 mg PO DAILY@0800 [facility] Sodium Chloride (Sodium Chloride 0.9%) 1,000 mls @ 75 mls/hr IV .[id number] [facility] Stop: 08/15/22 22:09 Last Admin: 08/15/22 15:29 Dose: Not Given Sodium Chloride (Sodium Chloride 0.9%) 500 mls @ 75 mls/hr IV .Q6H40M [facility] Last Admin: 08/15/22 15:31 Dose: 75 mls/hr Metoprolol Tartrate (Metoprolol Tartrate 25 Mg Tablet) 25 mg PO BID@0900,2100 [facility] Morphine Sulfate (Morphine 4 Mg/Ml Sdv 1 Ml) 2 mg IVP Q4H PRN PRN Reason: SEVERE PAIN Last Admin: 08/15/22 05:09 Dose: 2 mg Naloxone HCl (Naloxone 0.4 Mg/Ml Sdv) 0.1 mg IVP Q2M PRN PRN Reason: OPIATERV Ondansetron HCl (Ondansetron 2 Mg/Ml Sdv 2 Ml) 4 mg IVP Q8H PRN PRN Reason: vomiting, or N/V if npo Pantoprazole Sodium (Pantoprazole Dr 40 Mg Tablet) 40 mg PO DAILY [facility] Last Admin: 08/15/22 08:21 Dose: 40 mg Discontinued Medications Atorvastatin Calcium (Atorvastatin 40 Mg Tablet) 40 mg PO BEDTIME [facility] Diphenhydramine HCl (Diphenhydramine 50 Mg/Ml Sdv 1ml) Confirm Administered Dose 50 mg .ROUTE .[facility]MED ONE Stop: 08/15/22 12:35 Enoxaparin Sodium (Enoxaparin 80 Mg/0.8 Ml Syringe) 70 mg SUBCUT ONCE ONE Stop: 08/14/22 22:10 Last Admin: 08/14/22 22:31 Dose: 70 mg Enoxaparin Sodium (Enoxaparin 80 Mg/0.8 Ml Syringe) 70 mg SUBCUT Q12H [facility] Fentanyl (Fentanyl 50 Mcg/Ml Inj 2ml) Confirm Administered Dose 100 mcg .ROUTE .STK-MED ONE Stop: 08/15/22 12:34 Furosemide (Furosemide 10 Mg/Ml Sdv 4ml) 40 mg IVP ONCE ONE Stop: 08/14/22 22:25 Last Admin: 08/14/22 22:52 Dose: 40 mg Furosemide (Furosemide 10 Mg/Ml Sdv 4ml) 40 mg IVP Q24H [facility] Heparin Sodium (Porcine) (Heparin 5,000 Unit/Ml Inj 1 Ml) Confirm Administered Dose 10,000 unit .ROUTE .STK-MED ONE Stop: 08/15/22 09:56 Nitroglycerin/Dextrose (Nitroglycerin Drip) 50 mg in 250 mls @ 0 mls/hr IV .Q0M FRANCHESKA; Protocol Azithromycin 500 mg/ Sodium (Chloride) 250 mls @ 250 mls/hr IV ONCE ONE; Protocol Stop: 08/14/22 22:59 Last Infusion: 08/15/22 00:30 Dose: Infused Ceftriaxone Sodium 1,000 mg/ (Sodium Chloride) 50 mls @ 100 mls/hr IV ONCE ONE; Protocol Stop: 08/14/22 22:29 Last Infusion: 08/15/22 00:30 Dose: Infused Sodium Chloride (Sodium Chloride 0.9%) 1,000 mls @ 30 mls/hr IV .Q24H [facility]AN[facility]KA Last Admin: 08/15/22 12:11 Dose: 30 mls/hr Sodium Chloride (Sodium Chloride 0.9%) 1,000 mls @ 100 mls/hr IV .Q10H [facility] Lidocaine HCl (Lidocaine 1% Inj 10 Ml (Per Ml)) Confirm Administered Dose 30 ml .ROUTE .STK-MED ONE Stop: 08/15/22 12:09 Lidocaine HCl (Lidocaine 1% Inj 10 Ml (Per Ml)) Confirm Administered Dose 100 ml .ROUTE .STK-MED ONE Stop: 08/15/22 12:43 Midazolam HCl (Midazolam 1 Mg/Ml Inj 2 Ml) Confirm Administered Dose 2 mg .ROUTE .STK-MED ONE Stop: 08/15/22 12:34 Nitroglycerin (Nitroglycerin 5 Mg/Ml Sdv 10 Ml) Confirm Administered Dose 50 mg .ROUTE .STK-MED ONE Stop: 08/15/22 12:11 Allergies lisinopril Allergy (Severe, Verified 08/15/22 07:53) ALGY-Anaphylaxis nifedipine 0.2% topical ointment Allergy (Uncoded 08/15/22 08:03) 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 Home Medications cholecalciferol (vitamin D3) 125 mcg (5,000 unit) capsule 125 mcg PO DAILY 06/23/22 [History Confirmed 08/15/22] Mag Calm Powder 2 tsp PO DAILY 08/15/22 [History Confirmed 08/15/22] Standard Process Multivitamin 4 tab PO TID 08/15/22 [History Confirmed 08/15/22] aloe vera See Rx Instructions .Route .COMPLEX 08/15/22 [History Confirmed 08/15/22] bisacodyl 5 mg tablet,delayed release (Dulcolax (bisacodyl)) 10 mg PO DAILY PRN Constipation 08/15/22 [History Confirmed 08/15/22] clonidine HCl 0.2 mg tablet 0.2 mg PO DAILY PRN Blood Pressure 08/15/22 [History Confirmed 08/15/22] omega-3 1,050 ay-afq-osy-dpa-fish oil 1,200 mg capsule (Paint Bank-3 (with do cosapentaenoic acid)) 1 cap PO QAM 08/15/22 [History Confirmed 08/15/22] Discharge Plan Discharge Patient Disposition: Home Condition: Stable Prescriptions: No Action cholecalciferol (vitamin D3) 125 mcg (5,000 unit) capsule 125 mcg PO DAILY Dulcolax (bisacodyl) 5 mg Tablet,Delayed Release (Dr/Ec) 10 mg PO DAILY PRN (Reason: Constipation) aloe vera Gel See Rx Instructions .ROUTE .COMPLEX Rx Instructions: apply topically up to four times a day as needed for hemorrhoids Paint Bank-3 (with dpa) 1,050-1,200 mg Capsule 1 cap PO QAM Mag Calm Powder 2 tsp PO DAILY Standard Process Multivitamin 4 tab PO TID clonidine HCl 0.2 mg tablet 0.2 mg PO DAILY PRN (Reason: Blood Pressure) Patient Instructions: Opioid Safety, Pain Management Transfer Attestations Time Spent in Transfer Care: less than 30 min Quality Metrics Clinical Quality Measures [ No reported AMI, CVA or VTE this stay] Coding Level of Care Code Acute Code for Chg Fwd Diagnoses Hypertension I10 Non-ST elevation PR (NSTEMI) I21.4
[2022-08-15] MEDS: fentaNYL 50 mcg/mL INJ 2mL IVP (16:28)
--- NOTE | 2022-08-15 17:03 | PC.NURSE ---
50 mcg fentanyl given prior to procedure.right femoral artery sheath pulled at 1630.manual pressure held x 20 min.no hematoma formation noted.vss through-out procedure.pt tolerated procedure well.site dressed with 2x2 gauze and secured with biocclusive drsg.pt instructed in activity restrictions s/p femoral artery sheath removal..and instructed to notify staff for any bleeding,pain,numbness,sob or for any concerns at all.pt verb understanding of instructions.
--- NOTE | 2022-08-15 17:17 | PC.NURSE ---
tr band slowly deflated and finally taken off at 1715.right hand is warm to touch and with brisk capillary refill.palpable radial pulse noted.no hematoma formation noted.site dressed with 2x2 gauze and secured with biocclusive drsg.pt instructed in activity restrictions s/p tr band removal and instructed to notify staff for any bleeding,pain,nubness or for any concerns at all.pt verb understanding of instructions
--- NOTE | 2022-08-15 18:44 | PC.NURSE ---
at 1750,pt was turned to use bedpan.noted to have developed a hematoma approx 4 cm x 4 cm distal to sheath insertion site.dr wellington notified.manual pressure held x 20 min.pt tolerated procedure well.site is now soft.mario buck called and given update on pt's status
--- NOTE | 2022-08-15 20:33 | PC.NURSE ---
EMS arrived ~1944 to transport patient to [place], [place]. Hematoma to right groin resolved at this time. Assessed site with EMS staff to note any changes during transport. Family notified.
== END 2022-08-15 20:00 | disposition short-term general hospital (02) | DRG 280 ==
LOC: ER 22:38 → CSU 23:03
PROVIDERS: Internal Medicine Cardiovascular Disease; Admitting Provider Student in an Organized Health Care Education/Training Program; Emergency Provider Emergency Medicine; Visit Provider Internal Medicine
PROC: 4A023N7 Measurement of Cardiac Sampling and Pressure, Left Heart, Percutaneous Approach (ICD-10-PCS; principal; 2022-08-15 12:30)
DX: I21.4 Non-ST elevation (NSTEMI) myocardial infarction (principal); I50.23 Acute on chronic systolic (congestive) heart failure; I25.10 Atherosclerotic heart disease of native coronary artery without angina pectoris; I11.0 Hypertensive heart disease with heart failure; I27.20 Pulmonary hypertension, unspecified; Z87.891 Personal history of nicotine dependence
CPT/HCPCS: 36415; 36600; 51702; 71045; 80053; 80061; 82803; 83036; 83690; 83880; 84484; 85025; 85610; 85730; 87040; 87486; 87581; 87633; 93005; 93306; 93458; 96365; 96367; 96372; 96374; 99152; 99153; 99285; C1769; C1887; C1894; J0456; J0696; J1200; J1644; J1650; J1940; J2250; J2270; J3010; J3490; J7030; J7040; J7050; Q9967

== ENCOUNTER 2022-10-02 05:00 | Emergency (ER) | payer MEDICARE, SELFPAY ==
[2022-10-02 05:00] VITALS: BP 211/107; PULSE 75; RESP 22; TEMP 37.2; O2SAT 94; BMI 24.3
--- NOTE | 2022-10-02 05:05 | ECG_ITS ---
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 Measurements Intervals [place] Rate: 72 P: 15 MN: 142 QRS: 21 QRSD: 125 T: -31 QT: 418 QTc: 459 Interpretive Statements SINUS RHYTHM MODERATE INTRAVENTRICULAR CONDUCTION DELAY [110+ ms QRS DURATION] ST DEVIATION AND MODERATE T-WAVE ABNORMALITY, CONSIDER LATERAL ISCHEMIA [-0.1+ mV T-WAVE IN I/aVL/V5/V6] ST DEVIATION AND MODERATE T-WAVE ABNORMALITY, CONSIDER INFERIOR ISCHEMIA [-0.1+ mV T-WAVE IN II/aVF] Compared to ECG 08/15/2022 03:16:25 Possible ischemia now present T-wave abnormality still present Electronically Signed On 10-02-2022 18:43:22 CDT by Vivek Emmanuel M.D. [id number]
--- NOTE | 2022-10-02 05:06 | XRR_ITS ---
PROCEDURE INFORMATION: Exam: XR Chest Exam date and time: 10/02/2022 5:11 AM Age: 76 years old Clinical indication: Chest pressure; Patient HX: Arrival via air evac for chest pain. History of cardiomyopathy. ; Additional info: Cp TECHNIQUE: Imaging protocol: Radiologic exam of the chest. Views: 1 view. COMPARISON: CR (CHEST, ) 08/14/2022 9:28 PM FINDINGS: Lungs: Emphysematous change and interstitial prominence, with interval resolution of right basilar airspace disease. Pleural spaces: No significant pleural effusion. Heart/Mediastinum: Borderline cardiomegaly. Vasculature: Calcification of the thoracic aorta. Bones/joints: Osteopenia and degenerative change. XR/XR chest 1V portable [id number] IMPRESSION: Emphysematous change and interstitial prominence, with interval resolution of right basilar airspace disease.
--- NOTE | 2022-10-02 05:09 | ED_ITS ---
Documented by User: Pauline Simon MD 10/02/22 20:06 HPI - Chest Pain General: Chief Complaint: Chest Pain Stated Complaint: CHEST PAIN Time Seen by Provider: 10/02/22 05:00 Source: patient and EMS Mode of arrival: EMS Limitations: no limitations History of Present Illness: 76-year-old male who has history of coronary disease he did have a STEMI back in August had blockage and needed bypass he was transferred to [facility] at that time he refused a bypass he states he is followed up with the physician from there and he still is not wanting to get the bypass he has been having pain tonight roughly 3 hours ago was a sharp pain in the center of his chest patient was flown here he has been pain-free when EMS arrived he is hypertensive he denies any pain currently denies any shortness of breath currently. Associated symptoms: Deny abdominal pain, dyspnea, fever(s), nausea or vomiting Review of Systems Const: Denies: fever(s), chills, body aches or change in appetite Eyes: Denies: blurry vision or eye discomfort ENMT: Denies: throat pain or dental pain Card: Reports: chest pain Resp: Denies: dyspnea GI: Denies: abdominal pain, nausea, vomiting or diarrhea : Denies: dysuria Musc: Denies: neck pain or back pain Skin/Breast: Denies: rash Neuro: Denies: headache(s) Psych: Denies: depression Dandy/Lymph: Denies: easy bruising All/Imm: Denies: urticaria PFSH ED PFSH: Medical History Seasonal affective disorder Surgical History H/O umbilical hernia repair History of bilateral cataract extraction History of lumbar surgery Social History Smoking and tobacco status: former smoker Quit status (tobacco): has quit using tobacco Year quit tobacco: 57 YEARS AGO Alcohol intake: current Alcohol intake frequency: holidays/special occasions only Physical Exam Const: COMMON NORMALS: no acute distress, patient oriented x3 and healthy appearing HENMT: COMMON NORMALS: normocephalic and atraumatic HEAD & SCALP: normocephalic and atraumatic Eye: COMMON NORMALS: Equal, round and reactive pupils present and EOMs intact bilaterally PUPIL: Yes Equal, round and reactive pupils present Neck/C-Spine: COMMON NORMALS: full ROM and supple Chest: COMMONS NORMALS: normal inspection of the chest and normal palpation of entire chest wall Resp: COMMON NORMALS: normal respiratory effort, No retractions, No use of accessory muscles and clear to auscultation bilaterally AUSCULTATION: clear to auscultation bilaterally Cardio: COMMON NORMALS: regular rate, regular rhythm and No murmurs present (Cardio) RATE: regular rate RHYTHM: regular rhythm GI: COMMON NORMALS: Normal to inspection, nondistended, normoactive bowel sounds present, Soft to palpation, non-tender and no masses PALPATION: Yes Soft to palpation Extremity: COMMON NORMALS: normal to inspection and full ROM Neuro: COMMON NORMALS: patient oriented x3, moves all extremities and no focal motor deficits Psych: COMMON NORMALS: mental status grossly normal, Normal thought process present and cooperative THOUGHT PROCESS: Normal thought process present Skin: COMMON NORMALS: no rashes or lesions noted and no wounds GENERAL SKIN EXAM: no rashes or lesions noted Course Vital Signs: Vital signs: Vital Signs Temperature 98.9 F 10/02/22 05:00 Pulse Rate 75 10/02/22 08:22 Respiratory Rate 18 10/02/22 08:22 Blood Pressure 150/67 10/02/22 08:22 Pulse Oximetry 98 10/02/22 08:22 Oxygen Delivery Me thod 10/02/22 07:25 Oxygen Flow Rate 2 10/02/22 07:25 MDM - Chest Pain Medical Decision Making Patient's care turned over to Dr. Brown at this time to follow troponins. Lab Data 10/02/22 05:08 10/02/22 05:08 Radiology Impressions Chest X-Ray 10/02/22 05:06 IMPRESSION: Emphysematous change and interstitial prominence, with interval resolution of right basilar airspace disease. Laboratory Results WBC 7.7 10^3/uL (4.0-10.0) 10/02/22 05:08 RBC 5.51 10^6/uL (4.1-5.3) H 10/02/22 05:08 Hgb 13.0 g/dL (11.7-16.6) 10/02/22 05:08 Hct 43.2 % (42.0-52.0) 10/02/22 05:08 MCV 78.4 fl (80-94) L 10/02/22 05:08 MCH 23.6 pg (28.0-34.0) L 10/02/22 05:08 MCHC 30.1 g/dL (30.0-36.0) 10/02/22 05:08 RDW 16.1 % (12.1-15.1) H 10/02/22 05:08 Plt Count 239 10^3/cmm (130-400) 10/02/22 05:08 MPV 10.0 fL (7.4-10.4) 10/02/22 05:08 Neut % (Auto) 63.0 % 10/02/22 05:08 Lymph % (Auto) 26.9 % 10/02/22 05:08 [place] % (Auto) 8.3 % 10/02/22 05:08 Eos % (Auto) 1.0 % 10/02/22 05:08 Baso % (Auto) 0.5 % 10/02/22 05:08 Neut # (Auto) 4.87 10^3/uL (1.8-7.7) 10/02/22 05:08 Lymph # (Auto) 2.1 10^3/uL (0.8-4.8) 10/02/22 05:08 [place] # (Auto) 0.6 10^3/uL (0.2-0.9) 10/02/22 05:08 Eos # (Auto) 0.1 10^3/uL (0.0-0.8) 10/02/22 05:08 Baso # (Auto) 0.0 10^3/uL (0.0-0.1) 10/02/22 05:08 Nucleated RBC % (auto) 0 % 10/02/22 05:08 Nucleated RBCs # 0.0 /100WBC 10/02/22 05:08 PT 13.80 SECONDS (12.1-14.9) 10/02/22 05:08 INR 1.02 (0.8-1.2) 10/02/22 05:08 Sodium 138 mmol/L (136-145) 10/02/22 05:08 Potassium 3.2 mmol/L (3.5-5.1) L 10/02/22 05:08 Chloride 102 mmol/L (98-107) 10/02/22 05:08 Carbon Dioxide 24 mmol/L (22-29) 10/02/22 05:08 Anion Gap 15.2 (5-19) 10/02/22 05:08 BUN 15 mg/dL (8-23) 10/02/22 05:08 Creatinine 1.0 mg/dL (0.7-1.2) 10/02/22 05:08 GFR Calculation Not Reportable 10/02/22 05:08 Glucose 114 mg/dL (65-115) 10/02/22 05:08 Calculated Osmolality 288 mOsm/kg (285-295) 10/02/22 05:08 Calcium 9.2 mg/dL (8.5-10.5) 10/02/22 05:08 Total Bilirubin 0.8 mg/dL (0.15-1.2) 10/02/22 05:08 AST 21 U/L (0-40) 10/02/22 05:08 ALT 16 U/L (0-41) 10/02/22 05:08 Alkaline Phosphatase 74 U/L (40-130) 10/02/22 05:08 Troponin T Baseline 48 ng/L (0-15) H 10/02/22 05:08 Troponin T 120 Minute 43.94 ng/L (0-15) H 10/02/22 06:51 Delta Troponin T -4.06 ABS# (0-10) L 10/02/22 06:51 NT-Pro-B Natriuret Pep 4548 pg/mL (0-450) H 10/02/22 05:08 Total Protein 6.7 g/dL (6.6-8.7) 10/02/22 05:08 Albumin 4.0 g/dL (3.5-5.2) 10/02/22 05:08 Globulin 2.7 g/dL (1.3-4.6) 10/02/22 05:08 EKG Data EKG 1: I personally reviewed and interpreted this EKG as follows: EKG interpretation date: 10/02/22 EKG interpretation time: 05:05 Interpretation: nsr hr [address] or t wave abnormalities qrs 125 qtc 442 Discharge Plan Discharge Patient Disposition: Home Clinical Impression: Unstable angina pectoris, Hypertension Condition: Stable Prescriptions: New Toprol XL 50 mg tablet extended release 24 hr 25 mg PO DAILY Qty: 30 0RF isosorbide mononitrate 60 mg tablet extended release 24 hr 60 mg PO DAILY Qty: 30 0RF Discontinued isosorbide mononitrate 30 mg tablet extended release 24 hr 30 mg PO DAILY metoprolol tartrate 50 mg tablet 25 mg PO BID No Action cholecalciferol (vitamin D3) 125 mcg (5,000 unit) capsule 125 mcg PO DAILY bisacodyl [Dulcolax (bisacodyl)] 5 mg Tablet,Delayed Release (Dr/Ec) 10 mg PO DAILY PRN (Reason: Constipation) aloe vera Gel See Rx Instructions .ROUTE .COMPLEX Rx Instructions: apply topically up to four times a day as needed for hemorrhoids [place]-3 (with dpa) 1,050-1,200 mg Capsule 1 cap PO QAM Mag Calm Powder 2 tsp PO DAILY Standard Process Multivitamin 4 tab PO TID clonidine HCl 0.2 mg tablet 0.2 mg PO DAILY PRN (Reason: Blood Pressure) furosemide 40 mg tablet 40 mg PO DAILY atorvastatin 20 mg tablet 20 mg PO QPM clopidogrel 75 mg tablet 75 mg PO DAILY Aspir-81 81 mg Tablet,Delayed Release (Dr/Ec) 81 mg PO DAILY Nitrostat 0.4 mg Tablet, Sublingual 0.4 mg SUBLINGUAL Q5M PRN (Reason: Chest Pain) Rx Instructions: do not exceed 3 doses per episode potassium chloride 20 mEq tablet extended release 20 meq PO DAILY Discharge Orders: Discharge ED (Routine); Ordered 10/02/22 Ordered By: Joseph Brown Patient Instructions: Opioid Safety, Pain Management Activity Restrictions/Additional Instructions: You are seen today for chest pain. Your cardiac enzymes and EKG were unremarkable. Recommend that you increase your isosorbide mononitrate to 60 mg daily and change to Toprol-XL 25 daily. I did call and discussed your case with Dr. Carpio the cardiothoracic surgeon you have seen in [place] in the past. He does not recommend transfer at this point he concurs with increased medical management and recommends follow-up in the outpatient clinic setting to discuss the possibility of bypass surgery. Sign Out Sign Out Data: Patient Sign Out occurred on 10/02/22 at 06:04. Patient's care was discussed, and care was transferred from to Joseph Brown DO. Coding Level of Care Code ED Tenter Frame Back Tender for Chg Fwd Documented by User: Joseph Brown DO 10/03/22 06:56 HPI - Chest Pain General: Chief Complaint: Chest Pain Stated Complaint: CHEST PAIN Time Seen by Provider: 10/02/22 05:00 PFSH ED PFSH: Medical History Seasonal affective disorder Surgical History H/O umbilical hernia repair History of bilateral cataract extraction History of lumbar surgery Social History Smoking and tobacco status: former smoker Quit status (tobacco): has quit using tobacco Year quit tobacco: 57 YEARS AGO Alcohol intake: current Alcohol intake frequency: holidays/special occasions only Course Vital Signs: Vital signs: Vital Signs Temperature 98.9 F 10/02/22 05:00 Pulse Rate 75 10/02/22 08:22 Respiratory Rate 18 10/02/22 08:22 Blood Pressure 150/67 10/02/22 08:22 Pulse Oximetry 98 10/02/22 08:22 Oxygen Delivery Me thod 10/02/22 07:25 Oxygen Flow Rate 2 10/02/22 07:25 MDM - Chest Pain Medical Decision Making Patient's care turned over to Dr. Brown at this time to follow troponins. Second troponin does not show any elevation. I called and talked to his cardiac surgeon free at this time and without any EKG changes they do not recommend transfer is questionable whether or not he will even be a candidate for bypass he is not a candidate for any kind of percutaneous intervention. Cardiac s urgeon on-call is familiar with the patient and stated that they can offer him surgery however would be very high risk and he would need to stand that. We will discharge patient home continues medications increase his isosorbide mononitrate to 60 mg daily have him follow-up with cardiac surgery they can discuss the potential option of bypass however cardiac surgeon states patient and family need to understand it would come at very high risk. Medical Records I reviewed the patient's medical records. Lab Data I reviewed the patient's lab results. 10/02/22 05:08 10/02/22 05:08 Radiology Impressions Chest X-Ray 10/02/22 05:06 IMPRESSION: Emphysematous change and interstitial prominence, with interval resolution of right basilar airspace disease. Laboratory Results WBC 7.7 10^3/uL (4.0-10.0) 10/02/22 05:08 RBC 5.51 10^6/uL (4.1-5.3) H 10/02/22 05:08 Hgb 13.0 g/dL (11.7-16.6) 10/02/22 05:08 Hct 43.2 % (42.0-52.0) 10/02/22 05:08 MCV 78.4 fl (80-94) L 10/02/22 05:08 MCH 23.6 pg (28.0-34.0) L 10/02/22 05:08 MCHC 30.1 g/dL (30.0-36.0) 10/02/22 05:08 RDW 16.1 % (12.1-15.1) H 10/02/22 05:08 Plt Count 239 10^3/cmm (130-400) 10/02/22 05:08 MPV 10.0 fL (7.4-10.4) 10/02/22 05:08 Neut % (Auto) 63.0 % 10/02/22 05:08 Lymph % (Auto) 26.9 % 10/02/22 05:08 [place] % (Auto) 8.3 % 10/02/22 05:08 Eos % (Auto) 1.0 % 10/02/22 05:08 Baso % (Auto) 0.5 % 10/02/22 05:08 Neut # (Auto) 4.87 10^3/uL (1.8-7.7) 10/02/22 05:08 Lymph # (Auto) 2.1 10^3/uL (0.8-4.8) 10/02/22 05:08 [place] # (Auto) 0.6 10^3/uL (0.2-0.9) 10/02/22 05:08 Eos # (Auto) 0.1 10^3/uL (0.0-0.8) 10/02/22 05:08 Baso # (Auto) 0.0 10^3/uL (0.0-0.1) 10/02/22 05:08 Nucleated RBC % (auto) 0 % 10/02/22 05:08 Nucleated RBCs # 0.0 /100WBC 10/02/22 05:08 PT 13.80 SECONDS (12.1-14.9) 10/02/22 05:08 INR 1.02 (0.8-1.2) 10/02/22 05:08 Sodium 138 mmol/L (136-145) 10/02/22 05:08 Potassium 3.2 mmol/L (3.5-5.1) L 10/02/22 05:08 Chloride 102 mmol/L (98-107) 10/02/22 05:08 Carbon Dioxide 24 mmol/L (22-29) 10/02/22 05:08 Anion Gap 15.2 (5-19) 10/02/22 05:08 BUN 15 mg/dL (8-23) 10/02/22 05:08 Creatinine 1.0 mg/dL (0.7-1.2) 10/02/22 05:08 GFR Calculation Not Reportable 10/02/22 05:08 Glucose 114 mg/dL (65-115) 10/02/22 05:08 Calculated Osmolality 288 mOsm/kg (285-295) 10/02/22 05:08 Calcium 9.2 mg/dL (8.5-10.5) 10/02/22 05:08 Total Bilirubin 0.8 mg/dL (0.15-1.2) 10/02/22 05:08 AST 21 U/L (0-40) 10/02/22 05:08 ALT 16 U/L (0-41) 10/02/22 05:08 Alkaline Phosphatase 74 U/L (40-130) 10/02/22 05:08 Troponin T Baseline 48 ng/L (0-15) H 10/02/22 05:08 Troponin T 120 Minute 43.94 ng/L (0-15) H 10/02/22 06:51 Delta Troponin T -4.06 ABS# (0-10) L 10/02/22 06:51 NT-Pro-B Natriuret Pep 4548 pg/mL (0-450) H 10/02/22 05:08 Total Protein 6.7 g/dL (6.6-8.7) 10/02/22 05:08 Albumin 4.0 g/dL (3.5-5.2) 10/02/22 05:08 Globulin 2.7 g/dL (1.3-4.6) 10/02/22 05:08 Discharge Plan Discharge Patient Disposition: Home Clinical Impression: Unstable angina pectoris, Hypertension Condition: Stable Prescriptions: New Toprol XL 50 mg tablet extended release 24 hr 25 mg PO DAILY Qty: 30 0RF isosorbide mononitrate 60 mg tablet extended release 24 hr 60 mg PO DAILY Qty: 30 0RF Discontinued isosorbide mononitrate 30 mg tablet extended release 24 hr 30 mg PO DAILY metoprolol tartrate 50 mg tablet 25 mg PO BID No Action cholecalciferol (vitamin D3) 125 mcg (5,000 unit) capsule 125 mcg PO DAILY bisacodyl [Dulcolax (bisacodyl)] 5 mg Tablet,Delayed Release (Dr/Ec) 10 mg PO DAILY PRN (Reason: Constipation) aloe vera Gel See Rx Instructions .ROUTE .COMPLEX Rx Instructions: apply topically up to four times a day as needed for hemorrhoids [place]-3 (with dpa) 1,050-1,200 mg Capsule 1 cap PO QAM Mag Calm Powder 2 tsp PO DAILY Standard Process Multivitamin 4 tab PO TID clonidine HCl 0.2 mg tablet 0.2 mg PO DAILY PRN (Reason: Blood Pressure) furosemide 40 mg tablet 40 mg PO DAILY atorvastatin 20 mg tablet 20 mg PO QPM clopidogrel 75 mg tablet 75 mg PO DAILY Aspir-81 81 mg Tablet,Delayed Release (Dr/Ec) 81 mg PO DAILY Nitrostat 0.4 mg Tablet, Sublingual 0.4 mg SUBLINGUAL Q5M PRN (Reason: Chest Pain) Rx Instructions: do not exceed 3 doses per episode potassium chloride 20 mEq tablet extended release 20 meq PO DAILY Discharge Orders: Discharge ED (Routine); Ordered 10/02/22 Ordered By: Joseph Brown Patient Instructions: Opioid Safety, Pain Management Activity Restrictions/Additional Instructions: You are seen today for chest pain. Your cardiac enzymes and EKG were unremarkable. Recommend that you increase your isosorbide mononitrate to 60 mg daily and change to Toprol-XL 25 daily. I did call and discussed your case with Dr. Carpio the cardiothoracic surgeon you have seen in [place] in the past. He does not recommend transfer at this point he concurs with increased medical management and recommends follow-up in the outpatient clinic setting to discuss the possibility of bypass surgery. Sign Out Sign Out Data: Patient Sign Out occurred on 10/02/22 at 06:04. Patient's care was discussed, and care was transferred from to Joseph Brown DO. Coding Level of Care Code ED Tenter Frame Back Tender for Nick Alegre
[2022-10-02 05:13] LABS: Basophils % 0.5 %; Eosinophils # 0.1 10^3/uL (0.0-0.8); Hematocrit 43.2 % (42.0-52.0); Lymphocytes # 2.1 10^3/uL (0.8-4.8); Lymphocytes % 26.9 %; Mean Corpuscular HGB Conc 30.1 g/dL (30.0-36.0); Mean Corpuscular Hemoglobin 23.6 pg (28.0-34.0); Mean Corpuscular Volume 78.4 fl (80-94); Monocytes # 0.6 10^3/uL (0.2-0.9); Monocytes % 8.3 %; Neutrophils # 4.87 10^3/uL (1.8-7.7); Nucleated Red Blood Cells % 0 %; Platelet Count 239 10^3/cmm (130-400); Red Blood Count 5.51 10^6/uL (4.1-5.3); Red Cell Distribution Width 16.1 % (12.1-15.1); White Blood Count 7.7 10^3/uL (4.0-10.0)
[2022-10-02] MEDS: hyDRALAzine 20 mg/mL INJ 1 mL 10 MG IVP (05:14)
[2022-10-02 05:17] VITALS: BP 211/107; PULSE 71; RESP 24; O2SAT 96
[2022-10-02 05:20] VITALS: BP 211/107; PULSE 83; RESP 34; O2SAT 96
[2022-10-02 05:28] LABS: INR 1.02 (0.8-1.2)
[2022-10-02 05:35] LABS: Troponin(5th) Baseline 48 ng/L (0-15)
[2022-10-02 05:41] LABS: Alanine Aminotransferase 16 U/L (0-41); Alkaline Phosphatase 74 U/L (40-130); Anion Gap 15.2 (5-19); Aspartate Amino Transferase 21 U/L (0-40); Blood Urea Nitrogen 15 mg/dL (8-23); Calcium 9.2 mg/dL (8.5-10.5); Carbon Dioxide 24 mmol/L (22-29); Chloride 102 mmol/L (98-107); Globulin 2.7 g/dL (1.3-4.6); Glucose 114 mg/dL (65-115); Osmolality Calculated 288 mOsm/kg (285-295); Potassium 3.2 mmol/L (3.5-5.1); Sodium 138 mmol/L (136-145); Total Bilirubin 0.8 mg/dL (0.15-1.2); Total Protein 6.7 g/dL (6.6-8.7)
[2022-10-02 06:04] LABS: NT Pro B Type Natriuretic Pept 4548 pg/mL (0-450)
[2022-10-02] MEDS: isosorbide mononitrate ER 60 mg Tablet PO (06:15)
[2022-10-02] MEDS: metoprolol succinate ER (24 HR) 25 mg Tablet PO (06:15)
--- NOTE | 2022-10-02 07:06 | ECG_ITS ---
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 Measurements Intervals [place] Rate: 75 P: 10 MO: 145 QRS: 26 QRSD: 126 T: -35 QT: 433 QTc: 484 Interpretive Statements SINUS RHYTHM MODERATE INTRAVENTRICULAR CONDUCTION DELAY [110+ ms QRS DURATION] ST DEVIATION AND MODERATE T-WAVE ABNORMALITY, CONSIDER LATERAL ISCHEMIA [-0.1+ mV T-WAVE IN I/aVL/V5/V6] ST DEVIATION AND MODERATE T-WAVE ABNORMALITY, CONSIDER INFERIOR ISCHEMIA [-0.1+ mV T-WAVE IN II/aVF] Compared to ECG 10/02/2022 05:05:18 No significant changes Electronically Signed On 10-02-2022 18:47:21 CDT by Vivek Emmanuel M.D. [id number]
[2022-10-02 07:19] LABS: Troponin 5 2HR 43.94 ng/L (0-15)
[2022-10-02 07:25] VITALS: BP 150/67; PULSE 75; RESP 18; O2SAT 98
[2022-10-02 07:29] LABS: Troponin 5 2HR Delta -4.06 ABS# (0-10)
[2022-10-02 08:22] VITALS: BP 150/67; PULSE 75; RESP 18; O2SAT 98
== END 2022-10-02 08:24 | disposition home or self-care (01) ==
PROVIDERS: Emergency Medicine; Emergency Provider Family Medicine
DX: I20.0 Unstable angina (principal); I10 Essential (primary) hypertension; Z79.82 Long term (current) use of aspirin; Z79.02 Long term (current) use of antithrombotics/antiplatelets; Z87.891 Personal history of nicotine dependence
CPT/HCPCS: 36415; 71045; 80053; 83880; 84484; 85025; 85610; 93005; 96374; 99285; J0360